=== PATIENT | male | born 1985 | race Caucasian/White ===

== ENCOUNTER → 2020-03-11 08:48 | Outpatient (CLI) | payer OTHER, SELFPAY ==
--- NOTE | 2020-03-11 | DI.MRI.S_ITS ---
PROCEDURE: MR LUMBAR SPINE WO CON INDICATIONS: Dorsalgia, unspecified TECHNIQUE: Noncontrast sagittal T1 spin echo and T2 fast echo, sagittal STIR, axial T1 and T2 fast spin echo through the lumbar spine. In cases with scoliosis, additional coronal T2 fast spin echo may be performed. COMPARISON: None. FINDINGS: Image quality: Excellent. Alignment and Curvature: There is normal bony alignment. Bone Marrow: Marrow is of normal overall signal. No acute vertebral body compression fractures. Spinal Cord: Conus medullaris terminates at the L1 level. Visualized cord demonstrates normal signal and size. Paraspinous Soft Tissues: No paravertebral masses. T12-L1: Normal appearance. L1-L2: Normal appearance. L2-L3: Normal appearance. L3-L4: Normal appearance except for mild facet degeneration. L4-L5: The degenerative disc disease at this level is moderately severe, with disc height reduction, disc desiccation, and also a posterior transverse broad-base disc bulge that shows a left-sided posterolateral disc protrusion/contiguous disc herniation extending from the disc annular margin into the posterolateral recess and medial margin of the left neural foramen at L4-5 significantly impinging on the course of the left L4 and likely also the left L5 nerve roots. Facet osteoarthritis is moderate in severity at this level, contributing to spinal stenosis which is moderate in severity on the right and near severe on the left. Asymmetric left greater than right neural foraminal stenosis is present also. L5-S1: Normal appearance except for mild facet degeneration. IMPRESSION: The degenerative changes are minimal along the lumbosacral spine except at L4-5 where a moderately severe degree of degenerative disc disease is associated with a left posterolateral contiguous disc protrusion/herniation extending into the posterolateral recess, causing significant impingement on the course of the left L4 and left L5 nerve roots. Asymmetric left greater than right spinal stenosis is present as a result, as is asymmetric left greater than right foraminal stenosis. No additional area of definite nerve root impingement is found. Dictated by: Darrian Chauhan M.D. on 03/13/2020 at 12:35 Approved by: Darrian Chauhan M.D. on 03/13/2020 at 12:40
== END ==
PROVIDERS: Referring Provider Student in an Organized Health Care Education/Training Program; Visit Provider Student in an Organized Health Care Education/Training Program
DX: M54.9 Dorsalgia, unspecified (principal); M51.36 Other intervertebral disc degeneration, lumbar region; M51.26 Other intervertebral disc displacement, lumbar region
CPT/HCPCS: 72148

== ENCOUNTER → 2020-04-01 11:39 | Outpatient (CLI) | payer OTHER, SELFPAY ==
[2020-04-01 14:41] LABS: COVID19 -Nasal RAPID Negative (Negative)
== END ==
PROVIDERS: PCP Family Medicine; Visit Provider Nurse Practitioner
DX: Z01.812 Encounter for preprocedural laboratory examination (principal); Z20.822 Contact with and (suspected) exposure to COVID-19
CPT/HCPCS: 87635

== ENCOUNTER 2020-04-03 10:34 | Day surgery (SDC) | payer OTHER, SELFPAY ==
[2020-04-03] VITALS (8 sets, daily range): BP systolic 115–137; BP diastolic 76–89; PULSE 73–90; RESP 10–16; TEMP 36.4–37.1; O2SAT 96–100
--- NOTE | 2020-04-03 | DI.RAD.S_ITS ---
PROCEDURE: XR LUMBAR SPINE 2-3V INDICATIONS: L4-5 DISCECTOMY TECHNIQUE: 1 views of the lumbar spine were acquired. COMPARISON: [facility], MR, MR LUMBAR SPINE WO CON, 03/11/2020, 9:21. FINDINGS: Intraoperative images with localizer overlying the posterior aspect of L4-5. IMPRESSION: Intraoperative localization as above. Dictated by: Shanice Thomas M.D. on 04/03/2020 at 16:13 Approved by: Shanice Thomas M.D. on 04/03/2020 at 16:14
[2020-04-03] MEDS: LACTATED RINGERS 1,000 ML 42 ML IV (11:29)
--- NOTE | 2020-04-03 12:02 | PM.PREOP ---
Pre-operative Note COVID-19 COVID-19 status: Negative Result date/Date tested (Pos, Neg/Pending): 04/01/20 Interval Note History & Physical reviewed/Exam performed by Physician: Yes Changes to H&P: No
[2020-04-03] MEDS: CEFAZOLIN 2 GM/100 ML FROZ.PIGGY IV (12:31)
--- NOTE | 2020-04-03 12:50 | SUR.OPER ---
Prone on spine table, head in foam head support, padded chest and pelvic supports, gel pad at knees, lower legs supported by pillows; nipples, genitalia and toes free of pressure, arms secured on foam padded arm boards at <90 degrees abduction. Tape over blanket at thigh secured to table.
[2020-04-03] MEDS: BUPIVACAINE 0.5% W/ EPI (PF) 30 ML VIAL INJ (12:58)
[2020-04-03] MEDS: methylPREDNISolone acet DEPO 40 MG/ML VIAL IM (13:03)
--- NOTE | 2020-04-03 13:54 | PM.OP.1 ---
Operative Date/Time/Diagnoses Date of procedure: 04/03/20 Time of procedure: 12:21 Pre-op diagnosis: 1. L4-5 disc herniation 2. L4-5 spinal stenosis with radiculopathy Post-op diagnosis: same Procedure & Clinicians Procedure: 1. L4-5 left microdiscectomy 2. Utilization of microsurgical technique and operating microscope Same procedure as scheduled: Yes Indications: Patient has been having chronic back pain and worsening lumbar radiculopathy. Patient failed multiple conservative management with worsening pain weakness and numbness in her lower extremity. Patient has been having difficulty performing activity of daily living. After discussing risks benefits of treatment options, patient elected proceed with surgery. Surgeon: Ramón Christine Plant Engineering Manager: Cassie Read'Brien Click Yes if Unassisted: No Anesthesia Type: General Operative Notes Closure Type: primary Specimen(s): none sent Estimated Blood Loss (mL): 5 Blood products transfused: none Procedure in detail: Patient was seen in the preoperative area. Risks and benefits of the surgery was discussed with the patient. Informed consent was obtained from the patient and placed in the chart. Surgical site was marked. Patient was taken to the operative room. General anesthesia was administered. Prophylactic antibiotic was given to the patient less than 30 min before the incision was made. Patient was placed into a prone position on the Kiran table. Patient's back was then prepped and draped in the sterile fashion. Time-out was performed at this time. Using AP and lateral C-arm imaging the interval between L4-5 was identified and marked on patient's back. A 1 inch incision 1 in from midline was made on the left side. The fascia was incised in line with skin incision. Globus MARS retractors was placed inside the incision and docked onto the L4 lamina. Using microsurgical technique and operating microscope, a L4 laminotomy was performed using a Kerrison rongeur. Liagamentum flavum was resected at the site of the laminotomy. The disc space at L4-5 was identified. Microdiscectomy was performed by incising the annulus with #11 blade. Microcurettes and pituitary was used to removed herniated disc fragments of disc from the epidural space. Patient was found have significant amount of extruded disc material in the epidural space. The disc material was carefully removed using pituitary. After the microdiskectomy was completed, the area medial lateral superior and inferior to the area of the microdiskectomy was inspected and explored using a micro curette. No other impinging structure was identified. The wound was then irrigated with sterile normal saline. 40 mg Depo-Medrol was placed into the epidural space. The deep fascia was closed with 1-0 Vicryl. The subcutaneous tissue was closed with 2-0 Vicryl. The skin was closed with 4-0 Monocryl. Patient tolerated the procedure well. There were no complications. Patient was transferred recovery room in stable condition. Complications: none Post-operative Condition: stable Disposition: PACU Plan for aftercare: Admit to inpatient hospital
[2020-04-03] MEDS: OXYCODONE/ACETAMINOPHEN 5/325 TABLET 1 TAB PO (14:28)
== END 2020-04-03 15:05 | disposition home or self-care (01) ==
PROVIDERS: PCP Family Medicine; Referring Provider Orthopaedic Surgery Orthopaedic Surgery of the Spine; Visit Provider Orthopaedic Surgery Orthopaedic Surgery of the Spine
PROC: (CPT 63030; principal; 2020-04-03 12:15)
DX: M51.16 Intervertebral disc disorders with radiculopathy, lumbar region (principal); M48.061 Spinal stenosis, lumbar region without neurogenic claudication
CPT/HCPCS: 63030; 72100; 76000; J0690; J1030; J1100; J2250; J2405; J2704; J3010

== ENCOUNTER 2020-08-18 18:51 | Emergency (ER) | payer OTHER, SELFPAY ==
[2020-08-18 18:57] VITALS: BP 150/99; PULSE 85; RESP 15; TEMP 36.9; O2SAT 98; BMI 26.6
--- NOTE | 2020-08-18 23:16 | ED_ITS ---
HPI - Extremity Problem General Chief complaint: Extremity Problem,Nontraumatic Stated complaint: tingling,numbness and warmth left side from hip Time Seen by Provider: 08/18/20 23:13 Source: patient Mode of arrival: Ambulatory Limitations: no limitations History of Present Illness HPI Narrative: 35-year-old male nonsmoker with history of lumbar pain and laminectomy at few months ago presents with the chief complaint of a few days of numbness and tingling the left lateral thigh down to the knee and extending up into the hip over the course of the day. He denies any weakness nor pain. He has had no fever or chills. He states that elements of his symptoms remind him of what he felt like coming out of surgery. He denies any calf or thigh pain, swelling, erythema or warmth. MD Complaint: other Onset (ago): hour(s) Location: left Relieving factors: nothing Exacerbating factors: nothing Related Data Home Medications Medication Instructions Recorded Confirmed hydroxyzine pamoate [Vistaril] 25 mg PO TID 03/31/20 04/03/20 Acetaminophen Extra Strength 1,000 mg PO TID PRN 04/03/20 04/03/20 gabapentin 300 mg PO TID 04/03/20 04/03/20 Previous Rx's Medication Instructions Recorded oxycodone 5 mg PO Q4H PRN #30 tab 04/03/20 gabapentin 300 mg PO BEDTIME #14 cap 08/19/20 methylprednisolone [Medrol (Juan)] See Rx Instructions .ROUTE 08/19/20 .COMPLEX #21 ea Allergies Allergy/AdvReac Type Severity Reaction Status Date / Time azithromycin Allergy Unknown Rash Verified 08/18/20 18:57 Review of Systems Constitutional Constitutional: Denies chills, Denies fatigue, Denies fever(s), Denies frequent falls, Denies lethargy and Denies weakness Eyes Eyes: Denies change in vision, Denies eye discharge, Denies irritation and Denies loss of vision ENT Ears, Nose, Mouth, and Throat: Denies change in voice, Denies dizziness, Denies neck pain, Denies sore throat and Denies throat swelling Cardiovascular Cardiovascular: Denies chest pain, Denies irregular heart rhythm, Denies lightheadedness, Denies palpitations, Denies dyspnea, Denies dyspnea on exertion and Denies orthopnea Respiratory Respiratory: Denies cough, Denies dyspnea, Denies dyspnea on exertion and Denies wheezing Gastrointestinal Gastrointestinal: Denies abdominal pain, Denies change in bowel habits, Denies diarrhea, Denies nausea and Denies vomiting Musculoskeletal Musculoskeletal: Denies neck pain and Reports numbness Integumentary/Breasts Skin/Breast: Denies pruritus, Denies erythema, Denies rash and Denies wounds Neurologic Neurologic: Denies behavioral changes, Denies confusion, Denies dizziness, Denies frequent falls, Denies loss of vision, Reports numbness, Reports paresthesias and Denies weakness Psychiatric Psychiatric: Denies anxiety, Denies behavioral changes, Denies confusion, Denies depression, Denies homicidal ideation and Denies suicidal ideation Endocrine Endocrine: Denies fatigue, Denies flushing and Denies palpitations Hematologic/Lymphatic Hematologic/Lymphatic: Denies easy bruising Allergic/Immunologic Allergic/Immunologic: Denies urticaria, Denies throat swelling and Denies whee zing Patient History Medical History Lumbar disc herniation with radiculopathy Social History household members: spouse Smoking Status: Current every day smoker alcohol intake: current Smoking Status: Current every day smoker tobacco type: vaping alcohol intake frequency: a few times a month Substance Use Type: does not use Exam Narrative Exam Narrative: GENERAL: [35] year old patient appears stated age. Well- developed patient, in mild distress. HEAD: Atraumatic. Normocephalic. EYES: Pupils equal round and reactive. Extraocular motions intact. No scleral icterus. No injection or drainage. ENT: Nose without bleeding, purulent drainage. Throat without erythema, tonsillar hypertrophy or exudate. Airway patent. NECK: Trachea midline. Non tender CARDIOVASCULAR: Regular rate and rhythm without murmurs, gallops, or rubs. RESPIRATORY: Clear to auscultation. Breath sounds equal bilaterally. No wheezes, rales, or rhonchi. GASTROINTESTINAL: Abdomen soft, non-tender, nondistended. EXTREMITIES: No edema or joint tenderness. BACK: Back nontender and free of any obvious external abnormalities. Patient exam notes full range of motion and no muscle spasm, no CVA tenderness, or vertebral point tenderness. There are no symptoms of cauda equina such as saddle anesthesia, and decreased reflexes, decreased strength. NEURO: AOx3. SKIN: No rash or erythema of visible areas Initial Vital Signs Initial Vital Signs: Vital Signs Temperature 98.5 F 08/18/20 18:57 Pulse Rate 85 08/18/20 18:57 Respiratory Rate 15 08/18/20 18:57 Blood Pressure 150/99 H 08/18/20 18:57 Pulse Oximetry 98 08/18/20 18:57 Course Orders Ordered: Discontinued Medications Prednisone (Prednisone 20 Mg Tablet) 40 mg PO NOW ONE Stop: 08/19/20 00:36 Last Admin: 08/19/20 00:38 Dose: 40 mg Documented by: CHELSI Vital Signs Vital signs: Vital Signs - 8 hr 08/18/20 23:22 08/18/20 23:24 08/18/20 23:25 Pulse Rate 80 84 84 Respiratory Rate 16 Blood Pressure 137/87 137/87 Pulse Oximetry 100 100 100 08/18/20 23:30 08/19/20 00:00 08/19/20 00:30 Pulse Rate 82 72 79 Respiratory Rate Blood Pressure 125/76 128/85 139/98 H Pulse Oximetry 97 98 99 MDM - Extremity (Nontraumatic) MDM Narrative Medical decision making narrative: Multiple etiologies of back pain considered including; Epidural abscess, cauda equina, mass occupying lesion, and other considered. Extensive discussion with the patient at the bedside and shared decision making regarding how to proceed. His exam is reassuring and there are no elements or red flag symptoms to suggest a neurosurgical emergency. We discussed the use of steroids and gabapentin and discharge with outpatient f ollow-up versus CT with IV contrast. We elect to hold off on the CT for now, understanding that it is not the ideal exam. Will observe response to medications and return for those indications as discussed Discharge Plan Departure Patient Disposition: Home Clinical Impression: Acute left lumbar radiculopathy Instructions: DI for Lumbar Radiculopathy Activity Restrictions/Additional Instructions: *You have been diagnosed with [lumbar radiculopathy] *What to do: *Please continue to take your regular medications as directed. [ x] New medication prescriptions sent to your pharmacy: [[facility] ] [ ] New medication written as a paper prescription [ ] No new medications given *Please follow up with your primary care provider in 2-3 days, call for an appointment. Let them know you were seen in the Emergency Department and that we ask that you be seen in follow up. We will electronically transmit a record of today's note if your PCP is in our system *If you do not have a primary care provider please contact the [facility] Resource line at [phone]. They will ask some questions about your medical history and help get you set up with a doctor in the community. *Return to Emergency Department if you should have any new, worsening or con cerning symptoms, such as [fever greater than 101 F, shaking chills, worsening pain, persistent vomiting or other bothersome symptoms] Prescriptions: New gabapentin 300 mg capsule 300 mg PO BEDTIME Qty: 14 RF: 0 methylprednisolone [Medrol (Juan)] 4 mg tablets,dose pack See Rx Instructions .ROUTE .COMPLEX Qty: 21 RF: 0 No Action hydroxyzine pamoate [Vistaril] 25 mg Capsule 25 mg PO TID RF: 0 Acetaminophen Extra Strength 500 mg tablet 1,000 mg PO TID PRN (Reason: Pain (Scale Score 4-6)) RF: 0 gabapentin 300 mg capsule 300 mg PO TID RF: 0 oxycodone 5 mg tablet 5 mg PO Q4H PRN (Reason: pain) Qty: 30 RF: 0 Referrals: Juan Miguel Kraft DO [Primary Care Provider] -
[2020-08-18 23:22] VITALS: PULSE 80; O2SAT 100
[2020-08-18 23:24] VITALS: BP 137/87; PULSE 84; O2SAT 100
[2020-08-18 23:25] VITALS: BP 137/87; PULSE 84; RESP 16; O2SAT 100
[2020-08-18 23:30] VITALS: BP 125/76; PULSE 82; O2SAT 97
[2020-08-19] VITALS: BP 128/85; PULSE 72; O2SAT 98
[2020-08-19 00:30] VITALS: BP 139/98; PULSE 79; O2SAT 99
[2020-08-19] MEDS: predniSONE 20 MG TABLET 40 MG PO (00:38)
== END 2020-08-19 00:41 | disposition home or self-care (01) ==
PROVIDERS: Emergency Provider Emergency Medicine; PCP Family Medicine
DX: M54.16 Radiculopathy, lumbar region (principal); R20.0 Anesthesia of skin
CPT/HCPCS: 93010; 99283

== ENCOUNTER 2020-08-19 21:14 | Inpatient (IN) | payer OTHER, SELFPAY ==
[2020-08-19 21:26] VITALS: BP 160/91; PULSE 83; RESP 18; TEMP 36.8; O2SAT 97; BMI 26.6
--- NOTE | 2020-08-19 21:36 | DI.CT.S_ITS ---
PROCEDURE: CT HEAD/BRAIN WO CON INDICATIONS: left sided numbness TECHNIQUE: Noncontrast 4.5 mm thick angled axial sections acquired from the foramen magnum to the vertex, with coronal and sagittal reformats. For radiation dose reduction, the following was used: automated exposure control, adjustment of mA and/or kV according to patient size. COMPARISON: None. FINDINGS: Image quality: Excellent. CSF spaces: Basal cisterns are patent. No extra-axial fluid collections. Ventricles are normal in size and shape. Brain: No midline shift. No intracranial masses or hemorrhage. Le-white matter interface is normal. Skull and face: Calvarium and visualized facial bones are intact, without suspicious lesions. Sinuses: Visualized sinuses and mastoids are clear. IMPRESSION: No evidence acute stroke, hemorrhage, or mass. Comment: Final report is concordant with preliminary interpretation provided by [facility]. Dictated by: Mason Solorio M.D. on 08/20/2020 at 7:09 Approved by: Mason Solorio M.D. on 08/20/2020 at 7:10
[2020-08-19] MEDS: SODIUM CHLORIDE 0.9% 1,000 ML 150 ML IV (21:41)
[2020-08-19 22:21] LABS: Add Manual Diff / Slide Review NO; Basophils Absolute Auto 100 /uL (0-100); Eosinophils Absolute Auto 0 /uL (0-450); Eosinophils Percent Auto 0.4 % (2-4); Hemoglobin 14.6 g/dL (13.5-17.5); Lymphocytes Absolute Auto 3400 /uL (1100-4500); Lymphocytes Percent Auto 26.2 % (25-40); Mean Corpuscular HGB Conc 34.7 % (30-36); Mean Corpuscular Hemoglobin 30.6 PG (26-34); Mean Corpuscular Volume 88.3 fL (80-100); Monocytes Absolute Auto 1200 /uL (0-900); Monocytes Percent Auto 9.3 % (3-14); Neutrophils Absolute Auto 8100 /uL (1500-7000); Neutrophils Percent Auto 63.1 % (50-75); Platelet Count 314 X10^3/uL (150-400); Red Blood Cell Count 4.75 X10^6/uL (4.5-5.9); Red Cell Distribution Width 12.5 % (11.6-14.8); White Blood Cell Count 12.8 X10^3/uL (4.5-11.0)
[2020-08-19 22:26] LABS: BUN Creatinine Ratio 11.5 (6-22); Blood Urea Nitrogen 12 mg/dL (9-20); Calcium 9.3 mg/dL (8.4-10.2); Carbon Dioxide 29 mmol/L (22-32); Chloride 102 mmol/L (98-107); Creatine Kinase 101 U/L (55-170); Estimated Glomerular Filt Rate > 60.0 mL/min (>60); Glucose 82 mg/dL (70-100); HEMOLYSIS < 15 (0-50); Potassium 3.4 mmol/L (3.4-5.1); Sodium 140 mmol/L (137-145)
[2020-08-19 22:34] VITALS: BP 132/84; PULSE 86; RESP 24; O2SAT 97
[2020-08-19 22:35] VITALS: BP 129/74; PULSE 85; RESP 18; O2SAT 97
[2020-08-19 22:38] LABS: Troponin I < 0.012 ng/mL (0.01-0.034)
--- NOTE | 2020-08-19 22:38 | DI.CT.S_ITS ---
PROCEDURE: CT ANGIO HEAD AND NECK INDICATIONS: head pain, left sided numbness, decreased temp sensation TECHNIQUE: After the administration of intravenous contrast, 1 mm thick sections acquired from the aortic arch through the [place] of [place]. Post-contrast 4.5 mm thick sections then re-acquired from the foramen magnum to the vertex. 3-dimensional pxxcktc-jrrsvzoqi-ykfnldsyko (MIP) and/or volume rendering reformats were acquired of the central intracranial vasculature and neck separately. COMPARISON: None. FINDINGS: Image quality: Excellent. BRAIN: CSF spaces: Ventricles are normal in size and shape. Basal cisterns are patent. No extra-axial fluid collections. Brain: No midline shift. No intracranial bleeds or masses. Le-white matter interface appears intact. Skull and face: Calvarium and facial bones appear intact, without suspicious lesions. Orbits appear normal. Sinuses: Sinuses and mastoids are clear. HEAD CT ANGIOGRAPHY: Anterior circulation: Intracranial internal carotid arteries are normal in size and flow. The flow within the paired anterior cerebral arteries is normal and symmetric. The flow within the middle cerebral arteries is normal and symmetric. Hypoplastic or atretic A1 segment of right anterior cerebral artery, normal variant anatomy. The anterior communicating artery is seen. No aneurysms are seen. No occlusions, stenosis, or focal filling defects. Posterior circulation: The right vertebral artery is diffusely diminutive. The left vertebral artery is dominant, and they join to form a normal basilar artery. Flow within the posterior cerebral arteries is normal and symmetric. No aneurysms are seen. No occlusions, stenosis, focal filling defects. NECK CT ANGIOGRAPHY: Carotid system: The great vessels demonstrate a conventional anatomy as they arise from the aortic arch. The origins of the common carotid arteries appear patent. The common carotid arteries demonstrate normal caliber and courses. The bifurcation regions are both widely patent. The internal carotid arteries demonstrate normal calibers and courses. Posterior circulation: Diffusely diminutive right vertebral artery. Dominant left vertebral artery and normal basilar artery. They join to form a normal appearing basilar artery. Soft tissues: Visualized neck soft tissues demonstrate no suspicious abnormalities. Bones: No suspicious bony lesions. Visualized cervical spine appears normally aligned. IMPRESSION: 1. No evidence of acute stroke, hemorrhage, or mass. 2. Normal variant anatomy in which there is a diffusely hypoplastic right vertebral artery and a hypoplastic or atretic right A1 segment anterior cerebral artery. 3. No aneurysms, filling defects, stenosis, or occlusions 4. Unremarkable CTA neck. Widely patent carotids. Comment: Final report is concordant with preliminary interpretation provided by [facility]. Any quantitative measurements of stenosis were performed using NASCET criteria. Dictated by: Mason Solorio M.D. on 08/20/2020 at 7:12 Approved by: Mason Solorio M.D. on 08/20/2020 at 7:18
[2020-08-19 22:41] LABS: CKMB % Relative Index 0.5 % (1.5-5.0); Creatine Kinase MB 0.46 ng/mL (<2.37)
--- NOTE | 2020-08-19 23:13 | ED.NEUROSD ---
HPI - Neuro Symptoms/Deficit <Clif Womack DO - Last Filed: 08/26/20 03:20> General Chief Complaint: Neuro Symptoms/Deficit Stated Complaint: Tingling/Numbness up LT side of body Time Seen by Provider: 08/19/20 21:36 Source: patient Mode of arrival: Ambulatory Limitations: no limitations History of Present Illness HPI Narrative: 35M non smoker with history Of lumbar radiculopathy Presents with an evolution of the symptoms that brought him in yesterday. I saw him yesterday with a chief complaint of some numbness and tingling that radiated from his left hip down his left leg in the absence of pain or weakness. He denies any trouble controlling bowel or bladder. He denies any saddle anesthesia, lower extremity weakness or footdrop. He denies any trauma or known injury. He denies the use of IV drugs in, blood thinners. He was given prescriptions for steroids and gabapentin and encouraged follow-up. Over the course of the day today he started developing numbness and tingling of his left arm and much of the left side of his torso as well. He denies any weakness or pain. He denies any numbness or tingling of his face. He has no neck pain or known history of neck injury. He states that when he took a hot shower the left side of his body felt room as is the water were ice cold and the right side felt the actual warmth of the water. Onset (ago): day(s) Location: left arm and left leg History of same: No Severity: moderate Quality: tingling Relieving factors: none Exacerbating factors: none Context: gradual onset On Anticoagulants: No Associated symptoms: denies other symptoms Treatments Prior to Arrival: none Related Data Home Medications Medication Instructions Recorded Confirmed Acetaminophen Extra Strength 1,000 mg PO TID PRN 04/03/20 08/20/20 dextroamphetamine-amphetamine ER 20 mg PO DAILY 08/20/20 08/20/20 20 mg 24hr capsule,extend release Previous Rx's Medication Instructions Recorded gabapentin 300 mg capsule 300 mg PO BEDTIME #14 cap 08/19/20 aspirin 81 mg tablet,delayed 81 mg PO DAILY 30 Days #30 tab 08/21/20 release atorvastatin 80 mg tablet 80 mg PO BEDTIME 30 Days #30 tab 08/21/20 Allergies Allergy/AdvReac Type Severity Reaction Status Date / Time azithromycin Allergy Unknown Rash Verified 08/19/20 21:26 Review of Systems <Clif Womack DO - Last Filed: 08/26/20 03:20> Constitutional Constitutional: Denies chills, Denies fatigue, Denies fever(s), Denies frequent falls, Denies lethargy and Denies weakness Eyes Eyes: Denies change in vision, Denies eye discharge, Denies irritation and Denies loss of vision ENT Ears, Nose, Mouth, and Throat: Denies change in voice, Denies dizziness, Denies neck pain, Denies sore throat and Denies throat swelling Cardiovascular Cardiovascular: Denies chest pain, Denies irregular heart rhythm, Denies lightheadedness, Denies palpitations, Denies dyspnea, Denies dyspnea on exertion and Denies orthopnea Respiratory Respiratory: Denies cough, Denies dyspnea, Denies dyspnea on exertion and Denies wheezing Gastrointestinal Gastrointestinal: Denies abdominal pain, Denies change in bowel habits, Denies diarrhea, Denies nausea and Denies vomiting Musculoskeletal Musculoskeletal: Denies neck pain and Reports numbness Integumentary/Breasts Skin/Breast: Denies pruritus, Denies erythema, Denies rash and Denies wounds Neurologic Neurologic: Denies behavioral changes, Denies confusion, Denies dizziness, Denies frequent falls, Denies loss of vision, Reports numbness and Denies weakness Psychiatric Psychiatric: Denies anxiety, Denies behavioral changes, Denies confusion, Denies depression, Denies homicidal ideation and Denies suicidal ideation Endocrine Endocrine: Denies fatigue, Denies flushing and Denies palpitations Hematologic/Lymphatic Hematologic/Lymphatic: Denies easy bruising On Anticoagulants: No Allergic/Immunologic Allergic/Immunologic: Denies urticaria, Denies throat swelling and Denies wheezing Patient History <Clif Womack DO - Last Filed: 08/26/20 03:20> Medical History Lumbar disc herniation with radiculopathy Social History household members: spouse Smoking Status: Current every day smoker alcohol intake: current Smoking Status: Current every day smoker tobacco type: e-cigarettes alcohol intake frequency: a few times a month Substance Use Type: does not use Exam <Clif [place], DO - Last Filed: 08/26/20 03:20> Narrative Exam Narrative: GENERAL: [35] year old patient appears stated age. Well-developed patient, in mild distress. HEAD: Atraumatic. Normocephalic. EYES: Pupils equal round and reactive. Extraocular motions intact. No scleral icterus. No injection or drainage. ENT: Nose without bleeding, purulent drainage. Throat without erythema, tonsillar hypertrophy or exudate. Airway patent. NECK: Trachea midline. Non tender CARDIOVASCULAR: Regular rate and rhythm without murmurs, gallops, or rubs. RESPIRATORY: Clear to auscultation. Breath sounds equal bilaterally. No wheezes, rales, or rhonchi. GASTROINTESTINAL: Abdomen soft, non-tender, nondistended. EXTREMITIES: No edema or joint tenderness. BACK: Nontender without deformity or crepitance. No flank tenderness. NEURO: AOx3. Sensory deficit of left leg, arm and torso. Still has sensation, just less on the left. This is true for soft touch, pin prick, and temperature with ice cube. SKIN: No rash or erythema of visible areas Initial Vital Signs Initial Vital Signs: Vital Signs Temperature 98.2 F 08/19/20 21:26 Pulse Rate 83 08/19/20 21:26 Respiratory Rate 18 08/19/20 21:26 Blood Pressure 160/91 H 08/19/20 21:26 Pulse Oximetry 97 08/19/20 21:26 <Nadine Marin, DO - Last Filed: 08/20/20 19:22> Initial Vital Signs Initial Vital Signs: Vital Signs Temperature 98.2 F 08/19/20 21:26 Pulse Rate 83 08/19/20 21:26 Respiratory Rate 18 08/19/20 21:26 Blood Pressure 160/91 H 08/19/20 21:26 Pulse Oximetry 97 08/19/20 21:26 Scores <Clif Womack, DO - Last Filed: 08/26/20 03:20> NIH Stroke Scale Level of Conciousness: Alert, keenly responsive Ask month/age: Answers both questions correctly. Open/close eyes, close hand: Performs both tasks correctly Best gaze horizontal: Normal Visual mccoy: No visual loss Facial palsy: Normal symetrical movement Left arm drift: No drift for full 10 sec Right arm drift: No drift for full 10 sec Left leg drift: No drift for full 5 sec Right leg drift: No drift for full 5 sec Limb ataxia: Absent Sensory on face/arms/legs: Mild to moderate sensory loss, can tell touch Best language: No aphasia, normal Dysarthria: Normal Extinction or inattention: No abnormality Total NIH Stroke scale score: 1 Course <Clif Vu DO - Last Filed: 08/26/20 03:20> Orders Ordered: Discontinued Medications Acetaminophen (Acetaminophen 325 Mg Tablet) 650 mg PO Q6HR PRN PRN Reason: Fever/Mild Pain (1-3) Aspirin (Aspirin 81 Mg Chew Tab) 324 mg PO NOW ONE Stop: 08/20/20 10:09 Last Admin: 08/20/20 10:28 Dose: 324 mg Documented by: ISSAC Aspirin (Aspirin Ec 81 Mg Tablet) 81 mg PO DAILY [facility] Last Admin: 08/21/20 09:59 Dose: 81 mg Documented by: BRANDY Atorvastatin Calcium (Atorvastatin 20 Mg Tablet) 40 mg PO NOW ONE Stop: 08/20/20 10:20 Last Admin: 08/20/20 10:48 Dose: 40 mg Documented by: ISSAC Atorvastatin Calcium (Atorvastatin 20 Mg Tablet) 80 mg PO BEDTIME [facility] Last Admin: 08/20/20 21:11 Dose: 40 mg Documented by: BUD Clopidogrel Bisulfate (Clopidogrel 75 Mg Tablet) 75 mg PO DAILY [facility] Enoxaparin Sodium (Enoxaparin 40 Mg/0.4 Ml Syringe) 40 mg SUBCUT DAILY [facility] Last Admin: 08/21/20 09:59 Dose: 40 mg Documented by: BRANDY Sodium Chloride (Normal Saline 0.9%) 1,000 mls @ 150 mls/hr IV CONT [facility] Last Infusion: 08/20/20 00:26 Dose: 0 mls/hr Documented by: Admin: 08/19/20 21:41 Dose: 150 mls/hr Documented by: RADHIKA Naloxone HCl (Naloxone 0.4 Mg/Ml Vial) 0.2 mg IV Q2MIN PRN PRN Reason: Opiate Reversal Sodium Chloride (Sodium Chloride 0.9% Flush) 10 ml IV PRN PRN PRN Reason: Flush Sodium Chloride (Sodium Chloride 0.9% Flush) 10 ml IV BID [facility] Last Admin: 08/21/20 10:00 Dose: 10 ml Documented by: BRANDY Consultations Consultation #1: discussed with Dr. Varma (telestroke). He agrees that patient is not candidate for TPA or thrombectomy, but should get MRI of head and neck w/wo contrast to evaluate. No steroids or other therapies until MRI completed Vital Signs Vital signs: Vital Signs - 8 hr 08/20/20 02:59 08/20/20 03:00 08/20/20 03:30 Temperature Pulse Rate 83 82 81 Respiratory Rate 14 14 15 Blood Pressure 134/89 126/82 Pulse Oximetry 99 99 98 08/20/20 04:00 08/20/20 04:30 08/20/20 05:00 Temperature Pulse Rate 79 80 76 Respiratory Rate 14 17 12 Blood Pressure 123/85 128/81 129/86 Pulse Oximetry 98 98 98 08/20/20 05:30 08/20/20 06:00 08/20/20 06:30 Temperature Pulse Rate 76 76 66 Respiratory Rate 12 12 15 Blood Pressure 125/84 125/83 114/67 Pulse Oximetry 98 98 99 08/20/20 07:00 08/20/20 07:30 08/20/20 07:31 Temperature 97.9 F Pulse Rate 78 77 77 Respiratory Rate 15 21 18 Blood Pressure 109/68 128/77 Pulse Oximetry 99 98 99 08/20/20 08:00 Temperature Pulse Rate 82 Respiratory Rate 18 Blood Pressure 130/84 Pulse Oximetry 100 <Nadine Marin, - Last Filed: 08/20/20 19:22> Orders Ordered: Discontinued Medications Acetaminophen (Acetaminophen 325 Mg Tablet) 650 mg PO Q6HR PRN PRN Reason: Fever/Mild Pain (1-3) Aspirin (Aspirin 81 Mg Chew Tab) 324 mg PO NOW ONE Stop: 08/20/20 10:09 Last Admin: 08/20/20 10:28 Dose: 324 mg Documented by: ISSAC Aspirin (Aspirin Ec 81 Mg Tablet) 81 mg PO DAILY [facility] Last Admin: 08/21/20 09:59 Dose: 81 mg Documented by: BRANDY Atorvastatin Calcium (Atorvastatin 20 Mg Tablet) 40 mg PO NOW ONE Stop: 08/20/20 10:20 Last Admin: 08/20/20 10:48 Dose: 40 mg Documented by: ISSAC Atorvastatin Calcium (Atorvastatin 20 Mg Tablet) 80 mg PO BEDTIME [facility] Last Admin: 08/20/20 21:11 Dose: 40 mg Documented by: BUD Clopidogrel Bisulfate (Clopidogrel 75 Mg Tablet) 75 mg PO DAILY [facility] Enoxaparin Sodium (Enoxaparin 40 Mg/0.4 Ml Syringe) 40 mg SUBCUT DAILY [facility] Last Admin: 08/21/20 09:59 Dose: 40 mg Documented by: BRANDY Sodium Chloride (Normal Saline 0.9%) 1,000 mls @ 150 mls/hr IV CONT [facility] Last Infusion: 08/20/20 00:26 Dose: 0 mls/hr Documented by: Admin: 08/19/20 21:41 Dose: 150 mls/hr Documented by: RADHIKA Naloxone HCl (Naloxone 0.4 Mg/Ml Vial) 0.2 mg IV Q2MIN PRN PRN Reason: Opiate Reversal Sodium Chloride (Sodium Chloride 0.9% Flush) 10 ml IV PRN PRN PRN Reason: Flush Sodium Chloride (Sodium Chloride 0.9% Flush) 10 ml IV BID [facility] Last Admin: 08/21/20 10:00 Dose: 10 ml Documented by: BRANDY Consultations Consultation #1: Dr. Varma for telestroke was recontacted. based on patient's age and location of his stroke he recommends transfer to a larger stroke center. He recommends hypercoagulable workup for patient, and SALLY at some point and with cerebral location there is risk for increasing edema so he does recommend that patient not be kept here but a larger facility. He also recommends aspirin, Lipitor and no additional medication interventions at this moment Time: 10:22 Consultation #2: [facility], Dr. Hutchinson. patient has some a case was reviewed. At this time he feels he does not need a neuro ICU bed. he would recommend typical stroke workup and that they could facilitate outpatient a valve such as SALLY. But would continue with 2D echo, hypercoagulable workup and telemetry monitoring for other possible sources of his stroke. There is no bed availability at this time and would be 1-2 days and they asked that we advance patient's care and workup here at [facility] and they can follow up with him as an outpatient. Consultation #3: Dr. Chi, Hospitalist here at [facility] accepts for admission for stroke. I did share neurology's recommendations. That aspirin, Lipitor for the patient. Discussed that plan was to keep the patient here because we do not have bed availability at any hospitals including [facility]. Vital Signs Vital signs: Vital Signs - 8 hr 08/20/20 02:59 08/20/20 03:00 08/20/20 03:30 Temperature Pulse Rate 83 82 81 Respiratory Rate 14 14 15 Blood Pressure 134/89 126/82 Pulse Oximetry 99 99 98 08/20/20 04:00 08/20/20 04:30 08/20/20 05:00 Temperature Pulse Rate 79 80 76 Respiratory Rate 14 17 12 Blood Pressure 123/85 128/81 129/86 Pulse Oximetry 98 98 98 08/20/20 05:30 08/20/20 06:00 08/20/20 06:30 Temperature Pulse Rate 76 76 66 Respiratory Rate 12 12 15 Blood Pressure 125/84 125/83 114/67 Pulse Oximetry 98 98 99 08/20/20 07:00 08/20/20 07:30 08/20/20 07:31 Temperature 97.9 F Pulse Rate 78 77 77 Respiratory Rate 15 21 18 Blood Pressure 109/68 128/77 Pulse Oximetry 99 98 99 08/20/20 08:00 Temperature Pulse Rate 82 Respiratory Rate 18 Blood Pressure 130/84 Pulse Oximetry 100 MDM - Neuro Symptoms/Deficit <Clif Womack DO - Last Filed: 08/26/20 03:20> Lab Data Result diagrams: 08/21/20 04:56 08/21/20 04:56 Labs: Lab Results 08/19/20 08/19/20 08/20/20 Range/Units 21:55 21:55 00:33 WBC 12.8 H (4.5-11.0) X10^3/uL RBC 4.75 (4.5-5.9) X10^6/uL Hgb 14.6 (13.5-17.5) g/dL Hct 42.0 (41-53) % MCV 88.3 (80-100) fL MCH 30.6 (26-34) PG MCHC 34.7 (30-36) % RDW 12.5 (11.6-14.8) % Plt Count 314 (150-400) X10^3/uL Neut % (Auto) 63.1 (50-75) % Lymph % (Auto) 26.2 (25-40) % Swift % (Auto) 9.3 (3-14) % Eos % (Auto) 0.4 L (2-4) % Baso % (Auto) 1.0 (0-2) % Neut # (Auto) 8100 H (1697-5612) /uL Lymph # (Auto) 3400 (9626-9011) /uL Swift # (Auto) 1200 H (0-900) /uL Eos # (Auto) 0 (0-450) /uL Baso # (Auto) 100 (0-100) /uL Sodium 140 (137-145) mmol/L Potassium 3.4 (3.4-5.1) mmol/L Chloride 102 (98-107) mmol/L Carbon Dioxide 29 (22-32) mmol/L BUN 12 (9-20) mg/dL Creatinine 1.04 (0.66-1.25) mg/dL Estimated GFR > 60.0 (>60) mL/min BUN/Creatinine Ratio 11.5 (6-22) Glucose 82 (70-100) mg/dL Calcium 9.3 (8.4-10.2) mg/dL Total Creatine Kinase 101 (55-170) U/L CK-MB (CK-2) 0.46 (<2.37) ng/mL CK-MB (CK-2) Rel Index 0.5 L (1.5-5.0) % Troponin I < 0.012 (0.01-0.034) ng/mL U Opiates 300ng/mL cut Negative (Negative) Ur Oxycodone Screen Negative (Negative) Urine Methadone Screen Negative (Negative) Ur Barbiturates Screen Negative (Negative) U Tricyclic Antidepress Negative (Negative) Ur Phencyclidine Scrn Negative (Negative) Ur Amphetamines Screen Positive H (Negative) U Methamphetamines Scrn Negative (Negative) Ur MDMA Scrn (Ecstasy) Negative (Negative) U Benzodiazepines Scrn Negative (Negative) Urine Cocaine Screen Negative (Negative) U Marijuana (THC) Screen Negative (Negative) SARS-CoV-2 (PCR) (Negative) 08/20/20 Range/Units 10:32 WBC (4.5-11.0) X10^3/uL RBC (4.5-5.9) X10^6/uL Hgb (13.5-17.5) g/dL Hct (41-53) % MCV (80-100) fL MCH (26-34) PG MCHC (30-36) % RDW (11.6-14.8) % Plt Count (150-400) X10^3/uL Neut % (Auto) (50-75) % Lymph % (Auto) (25-40) % Swift % (Auto) (3-14) % Eos % (Auto) (2-4) % Baso % (Auto) (0-2) % Neut # (Auto) (7728-9862) /uL Lymph # (Auto) (0193-0971) /uL Swift # (Auto) (0-900) /uL Eos # (Auto) (0-450) /uL Baso # (Auto) (0-100) /uL Sodium (137-145) mmol/L Potassium (3.4-5.1) mmol/L Chloride (98-107) mmol/L Carbon Dioxide (22-32) mmol/L BUN (9-20) mg/dL Creatinine (0.66-1.25) mg/dL Estimated GFR (>60) mL/min BUN/Creatinine Ratio (6-22) Glucose (70-100) mg/dL Calcium (8.4-10.2) mg/dL Total Creatine Kinase (55-170) U/L CK-MB (CK-2) (<2.37) ng/mL CK-MB (CK-2) Rel Index (1.5-5.0) % Troponin I (0.01-0.034) ng/mL U Opiates 300ng/mL cut (Negative) Ur Oxycodone Screen (Negative) Urine Methadone Screen (Negative) Ur Barbiturates Screen (Negative) U Tricyclic Antidepress (Negative) Ur Phencyclidine Scrn (Negative) Ur Amphetamines Screen (Negative) U Methamphetamines Scrn (Negative) Ur MDMA Scrn (Ecstasy) (Negative) U Benzodiazepines Scrn (Negative) Urine Cocaine Screen (Negative) U Marijuana (THC) Screen (Negative) SARS-CoV-2 (PCR) Negative (Negative) Urine Dip Bedside Urine Glucose Negative Bedside Urine Bilirubin - Negative Bedside Urine Ketone - Negative Urine Specific [place] 1.010 Bedside Urine Occult Blood - Negative Bedside Urine pH 6.5 Bedside Urine Protein - Negative Bedside Urine Urobilinogen - Negative Bedside Urine Nitrite - Negative Bedside Urine Leukocytes - Negative Esterase <Nadine C Mank, DO - Last Filed: 08/20/20 19:22> Lab Data Attestation: I reviewed the patient's lab results. Labs: Lab Results 08/19/20 08/19/20 08/20/20 Range/Units 21:55 21:55 00:33 WBC 12.8 H (4.5-11.0) X10^3/uL RBC 4.75 (4.5-5.9) X10^6/uL Hgb 14.6 (13.5-17.5) g/dL Hct 42.0 (41-53) % MCV 88.3 (80-100) fL MCH 30.6 (26-34) PG MCHC 34.7 (30-36) % RDW 12.5 (11.6-14.8) % Plt Count 314 (150-400) X10^3/uL Neut % (Auto) 63.1 (50-75) % Lymph % (Auto) 26.2 (25-40) % Swift % (Auto) 9.3 (3-14) % Eos % (Auto) 0.4 L (2-4) % Baso % (Auto) 1.0 (0-2) % Neut # (Auto) 8100 H (5721-7235) /uL Lymph # (Auto) 3400 (8164-1919) /uL Swift # (Auto) 1200 H (0-900) /uL Eos # (Auto) 0 (0-450) /uL Baso # (Auto) 100 (0-100) /uL Sodium 140 (137-145) mmol/L Potassium 3.4 (3.4-5.1) mmol/L Chloride 102 (98-107) mmol/L Carbon Dioxide 29 (22-32) mmol/L BUN 12 (9-20) mg/dL Creatinine 1.04 (0.66-1.25) mg/dL Estimated GFR > 60.0 (>60) mL/min BUN/Creatinine Ratio 11.5 (6-22) Glucose 82 (70-100) mg/dL Calcium 9.3 (8.4-10.2) mg/dL Total Creatine Kinase 101 (55-170) U/L CK-MB (CK-2) 0.46 (<2.37) ng/mL CK-MB (CK-2) Rel Index 0.5 L (1.5-5.0) % Troponin I < 0.012 (0.01-0.034) ng/mL U Opiates 300ng/mL cut Negative (Negative) Ur Oxycodone Screen Negative (Negative) Urine Methadone Screen Negative (Negative) Ur Barbiturates Screen Negative (Negative) U Tricyclic Antidepress Negative (Negative) Ur Phencyclidine Scrn Negative (Negative) Ur Amphetamines Screen Positive H (Negative) U Methamphetamines Scrn Negative (Negative) Ur MDMA Scrn (Ecstasy) Negative (Negative) U Benzodiazepines Scrn Negative (Negative) Urine Cocaine Screen Negative (Negative) U Marijuana (THC) Screen Negative (Negative) SARS-CoV-2 (PCR) (Negative) 08/20/20 Range/Units 10:32 WBC (4.5-11.0) X10^3/uL RBC (4.5-5.9) X10^6/uL Hgb (13.5-17.5) g/dL Hct (41-53) % MCV (80-100) fL MCH (26-34) PG MCHC (30-36) % RDW (11.6-14.8) % Plt Count (150-400) X10^3/uL Neut % (Auto) (50-75) % Lymph % (Auto) (25-40) % Swift % (Auto) (3-14) % Eos % (Auto) (2-4) % Baso % (Auto) (0-2) % Neut # (Auto) (8437-5556) /uL Lymph # (Auto) (8844-2197) /uL Swift # (Auto) (0-900) /uL Eos # (Auto) (0-450) /uL Baso # (Auto) (0-100) /uL Sodium (137-145) mmol/L Potassium (3.4-5.1) mmol/L Chloride (98-107) mmol/L Carbon Dioxide (22-32) mmol/L BUN (9-20) mg/dL Creatinine (0.66-1.25) mg/dL Estimated GFR (>60) mL/min BUN/Creatinine Ratio (6-22) Glucose (70-100) mg/dL Calcium (8.4-10.2) mg/dL Total Creatine Kinase (55-170) U/L CK-MB (CK-2) (<2.37) ng/mL CK-MB (CK-2) Rel Index (1.5-5.0) % Troponin I (0.01-0.034) ng/mL U Opiates 300ng/mL cut (Negative) Ur Oxycodone Screen (Negative) Urine Methadone Screen (Negative) Ur Barbiturates Screen (Negative) U Tricyclic Antidepress (Negative) Ur Phencyclidine Scrn (Negative) Ur Amphetamines Screen (Negative) U Methamphetamines Scrn (Negative) Ur MDMA Scrn (Ecstasy) (Negative) U Benzodiazepines Scrn (Negative) Urine Cocaine Screen (Negative) U Marijuana (THC) Screen (Negative) SARS-CoV-2 (PCR) Negative (Negative) Urine Dip Bedside Urine Glucose Negative Bedside Urine Bilirubin - Negative Bedside Urine Ketone - Negative Urine Specific Chester 1.010 Bedside Urine Occult Blood - Negative Bedside Urine pH 6.5 Bedside Urine Protein - Negative Bedside Urine Urobilinogen - Negative Bedside Urine Nitrite - Negative Bedside Urine Leukocytes - Negative Esterase Imaging Data Brain MRI: Radiologist's Impression: [address] [id number] Resonance ReportSigned Patient: Jesse Baker WMR#: [id number]: 1985Acct:[id number]/Sex: 35 / MDate of Service: 08/20/20Loc: EDAccession Number: [id number] Procedure: MR head/brain wo/w con Ordering Provider: Clif Womack D.O. PROCEDURE: MR HEAD/BRAIN WO/W CON INDICATIONS: left arm numbness, tingling, temperature change TECHNIQUE: Noncontrast axial T1 spin echo, axial T2 fast spin echo, sagittal and axial FLAIR, coronal T2 fast spin echo, axial gradient echo, axial diffusion and ADC through the brain. After the administration of contrast, axial and coronal 3D VIBE or T1 spin echo with fat saturation through the brain. COMPARISON: [facility], CT, CT ANGIO HEAD AND NECK, 08/19/2020, 22:48. FINDINGS: Image quality: Excellent. CSF Spaces: Basal cisterns are patent. No extra-axial fluid collections. Ventricles are normal in size and shape. Brain: No midline shift. No intracranial bleeds or masses. No abnormal intracranial enhancement. The brainstem appears normal. There is a tiny area of acute infarct in the inferior medial right cerebellum. There is associated restricted water diffusion. Reference image 57 of series 11. There is a small amount associated cytotoxic edema noted on the FLAIR sequence. Reference image 5 of series 7. No chronic ischemic insults. Normal intravascular flow voids are present. Again noted is a diffusely diminutive right vertebral artery and a dominant left vertebral artery. Skull and face: Calvarial marrow is normal in signal. Orbits appear normal. Sinuses: Sinuses and mastoids appear clear. IMPRESSION: 1. Tiny acute inferior medial right cerebellar infarct. This infarct has occurred long enough ago for there to be associated cytotoxic edema noted on the FLAIR imaging. 2. 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 3. Brain parenchyma is otherwise normal in appearance. Dictated by: Mason Solorio M.D. on 08/20/2020 at 8:40 Approved by: Mason Solorio M.D. on 08/20/2020 at 8:47 MRI Cspine: Radiologist's Impression: [address] [id number] Resonance ReportSigned Patient: Jesse Baker WMR#: [id number]: 1985Acct:[id number]/Sex: 35 / MDate of Service: 08/20/20Loc: EDAccession Number: [id number] Procedure: MR cervical spine wo/w con Ordering Provider: Clif Womack D.O. PROCEDURE: MR CERVICAL SPINE WO/W CON INDICATIONS: left arm and leg numbness, tingling TECHNIQUE: Noncontrast sagittal T1 spin echo and T2 fast spin echo, sagittal STIR, foraminal oblique sagittal T2 fast spin echo, axial gradient echo or T2 fast spin echo through the cervical spine. After the administration of contrast, axial and sagittal T1 spin echo with fat saturation through the cervical spine. COMPARISON: [facility], HEAD/BRAIN WO/W CON, 08/20/2020, 7:57. FINDINGS: Image quality: Excellent. Alignment and curvature: There is normal bony alignment. Marrow: Marrow is normal in overall signal, without suspicious enhancement. Spinal cord: Visualized spinal cord has normal size and signal. No cerebellar tonsillar herniation. No abnormal intramedullary enhancement. Inferior brain: Subtle cytotoxic edema from a tiny acute inferomedial right cerebellar infarct. Paraspinous soft tissues: No paravertebral masses or suspicious enhancement. C2-3: No canal stenosis or foraminal stenosis. C3-4: No canal stenosis or foraminal stenosis. C4-5: No canal stenosis or foraminal stenosis. C5-6: No canal stenosis or foraminal stenosis. C6-7: No canal stenosis or foraminal stenosis. C7-T1: No canal stenosis or foraminal stenosis. IMPRESSION: 1. Note made of subtle cytotoxic edema on the top to images in the inferomedial right cerebellum. This is only seen when viewed in conjunction with the brain MRI from the same setting. 2. Otherwise unremarkable cervical spine MRI with without contrast. No canal stenosis or foraminal stenosis. Dictated by: Mason Solorio M.D. on 08/20/2020 at 8:48 Approved by: Mason Solorio M.D. on 08/20/2020 at 8:52 MDM Narrative Medical decision making narrative: this is a 35-year-old male who was seen by myself and independent evaluation after sign-out from Dr. Womack. patient states that about 6 days ago he developed a quite severe occipital headache that lasted for several days. Several days after that he had some numbness tingling in his left lower extremity. Several days after that yesterday he noted that the left upper extremity and side of his body did have differences in sensation any even appreciate some color differential on his body. Patient states he got in the shower and appreciated the right side but pot the left side felt cold. Patient was seen by my partner condom had head CT and CTA which did show acute changes, discussion was done with tele stroke and Dr. Varma and felt it would be appropriate hold patient for GinVA which was not available last night. Patient does appear to had a cerebellar stroke aspirin was initiated, Plavix and recommendation was given for workup and transfer to larger stroke facility as we do not have all of these components available such as SALLY available to us. There is no bed availability in the general area at this time. Multiple hospitals have been contacted. I did also speak with Neurology at [facility] in the recommend keeping patient here for initial workup, patient can have actual SALLY as an outpatient but the rest of his workup can be facilitated initially here. They were happy to consult as needed with our hospitalist. Our hospitalist kindly accepted patient for admission. Discharge Plan Departure Patient Disposition: Admitted As Inpatient Clinical Impression: Acute CVA (cerebrovascular accident) Admit Date/Time: 08/20/20 12:34 Admit Provider: Drew Chi
[2020-08-20] VITALS (20 sets, daily range): BP systolic 109–140; BP diastolic 67–92; PULSE 66–85; RESP 12–21; TEMP 36.4–36.9; O2SAT 98–100; BMI 26.6
--- NOTE | 2020-08-20 00:32 | DI.MRI.S_ITS ---
PROCEDURE: MR CERVICAL SPINE WO/W CON INDICATIONS: left arm and leg numbness, tingling TECHNIQUE: Noncontrast sagittal T1 spin echo and T2 fast spin echo, sagittal STIR, foraminal oblique sagittal T2 fast spin echo, axial gradient echo or T2 fast spin echo through the cervical spine. After the administration of contrast, axial and sagittal T1 spin echo with fat saturation through the cervical spine. COMPARISON: [facility], MR, MR HEAD/BRAIN WO/W CON, 08/20/2020, 7:57. FINDINGS: Image quality: Excellent. Alignment and curvature: There is normal bony alignment. Marrow: Marrow is normal in overall signal, without suspicious enhancement. Spinal cord: Visualized spinal cord has normal size and signal. No cerebellar tonsillar herniation. No abnormal intramedullary enhancement. Inferior brain: Subtle cytotoxic edema from a tiny acute inferomedial right cerebellar infarct. Paraspinous soft tissues: No paravertebral masses or suspicious enhancement. C2-3: No canal stenosis or foraminal stenosis. C3-4: No canal stenosis or foraminal stenosis. C4-5: No canal stenosis or foraminal stenosis. C5-6: No canal stenosis or foraminal stenosis. C6-7: No canal stenosis or foraminal stenosis. C7-T1: No canal stenosis or foraminal stenosis. IMPRESSION: 1. Note made of subtle cytotoxic edema on the top to images in the inferomedial right cerebellum. This is only seen when viewed in conjunction with the brain MRI from the same setting. 2. Otherwise unremarkable cervical spine MRI with without contrast. No canal stenosis or foraminal stenosis. Dictated by: Mason Solorio M.D. on 08/20/2020 at 8:48 Approved by: Mason Solorio M.D. on 08/20/2020 at 8:52
--- NOTE | 2020-08-20 00:32 | DI.MRI.S_ITS ---
PROCEDURE: MR HEAD/BRAIN WO/W CON INDICATIONS: left arm numbness, tingling, temperature change TECHNIQUE: Noncontrast axial T1 spin echo, axial T2 fast spin echo, sagittal and axial FLAIR, coronal T2 fast spin echo, axial gradient echo, axial diffusion and ADC through the brain. After the administration of contrast, axial and coronal 3D VIBE or T1 spin echo with fat saturation through the brain. COMPARISON: [facility], CT, CT ANGIO HEAD AND NECK, 08/19/2020, 22:48. FINDINGS: Image quality: Excellent. CSF Spaces: Basal cisterns are patent. No extra-axial fluid collections. Ventricles are normal in size and shape. Brain: No midline shift. No intracranial bleeds or masses. No abnormal intracranial enhancement. The brainstem appears normal. There is a tiny area of acute infarct in the inferior medial right cerebellum. There is associated restricted water diffusion. Reference image 57 of series 11. There is a small amount associated cytotoxic edema noted on the FLAIR sequence. Reference image 5 of series 7. No chronic ischemic insults. Normal intravascular flow voids are present. Again noted is a diffusely diminutive right vertebral artery and a dominant left vertebral artery. Skull and face: Calvarial marrow is normal in signal. Orbits appear normal. Sinuses: Sinuses and mastoids appear clear. IMPRESSION: 1. Tiny acute inferior medial right cerebellar infarct. This infarct has occurred long enough ago for there to be associated cytotoxic edema noted on the FLAIR imaging. 2. 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 3. Brain parenchyma is otherwise normal in appearance. Dictated by: Mason Solorio M.D. on 08/20/2020 at 8:40 Approved by: Mason Solorio M.D. on 08/20/2020 at 8:47
[2020-08-20 00:42] LABS: Ur Creatinine Normal (Normal); Ur Specific Gravity Normal (Normal); Urine Tetrahydrocannabinol Negative (Negative); Urine pH Normal (Normal)
[2020-08-20 00:45] LABS: UR Morphine/Opiate cutoff 300 Negative (Negative); Urine Amphetamines Positive (Negative); Urine Barbiturates Negative (Negative); Urine Benzodiazepines Negative (Negative); Urine Cocaine Negative (Negative); Urine MDMA Negative (Negative); Urine Methadone Negative (Negative); Urine Methamphetamines Negative (Negative); Urine Oxycodone Negative (Negative); Urine Phencyclidine Negative (Negative); Urine Tricyclic Antidepressant Negative (Negative)
[2020-08-20] MEDS: ASPIRIN 81 MG CHEW TAB 324 MG PO (10:28)
[2020-08-20] MEDS: ATORVASTATIN 20 MG TABLET 40 MG PO (10:48)
[2020-08-20 10:51] LABS: COVID19 -Nasal RAPID Negative (Negative)
--- NOTE | 2020-08-20 15:44 | DI.ECHO.S_ITS ---
[place] +---------+ [facility] +---------+ : : [address] : : : : [id number] : : : : Phone: [phone]+ Echocardiogram Report + + :Name: BELINDA OLIVER Study Date: 08/21/2020 Height: 67 in : :[facility] ReadingLocation: Weight: 170 lb : : Gender: Male BSA: 1.9 m2 : :: 1985 Age: 35 yrs BP: 130/77 mmHg: :Reason For Study: CVA : :Ordering Physician: VISHAL, : :LIAN Performed By: Magnolia Ortiz : :Referring: LIAN RODGERS : + + Interpretation Summary Normal echo study. Injection of contrast documented no interatrial shunt. Procedure: A two-dimensional transthoracic echocardiogram with color flow and Doppler was performed. There is no prior echocardiogram noted for this patient. A saline contrast injection was performed to assess for cardiac shunting. The injection was performed through an intravenous line in the left arm. The study quality was technically adequate. The patient was in sinus rhythm with heart rates between 65-80 bpm during the exam. Left Ventricle: The left ventricle is normal in size and wall thickness. The ejection fraction is estimated to be 60-65%. Left ventricular wall motion is normal. Diastolic parameters suggest probable normal left ventricular diastolic function and normal filling pressures. Right Ventricle: The right ventricle is normal in size and function. Atria: The left atrial size is normal. Right atrial size is normal. Injection of contrast documented no interatrial shunt. There is no Doppler evidence for an interatrial shunt. Mitral Valve: The mitral valve is normal in structure and function. There is trace mitral regurgitation. Aortic Valve: The aortic valve is trileaflet. The aortic valve opens well. There is no aortic valve stenosis. No aortic regurgitation is present. Tricuspid Valve: The tricuspid valve is normal in structure and function. No tricuspid regurgitation. Pulmonary artery pressures cannot be estimated because of the lack of a measurable TR jet velocity but the IVC suggests a CVP of around 3 mmHg. Pulmonic Valve: The pulmonic valve leaflets are thin and pliable; valve motion is normal. There is trace pulmonic regurgitation. Great Vessels: The aortic root is normal size. The dimensions of the ascending aorta are normal. The IVC is of normal diameter and collapses greater than 50% with a sniff. This suggests a low right atrial pressure of 3 mm Hg. Pericardium/ Pleura There is no pericardial effusion. There is no pleural effusion. MMode/2D Measurements & Calculations LVIDd: 4.2 cm LVOT diam: 2.0 cm LVIDs: 2.8 cm Ao root diam: 3.1 cm FS: 33.5 % asc Aorta Diam: 3.1 cm IVSd: 0.96 cm Ao Arch Diam (Prox Trans): 2.6 cm LVPWd: 0.80 cm LV gallegos. diameter/BSA (cm/m^2): 2.2 LV sys. diameter/BSA (cm/m^2): 1.5 LA A2 area: 14.8 cm2 RA long axis: 4.3 cm LA A4 area: 14.9 cm2 RA area: 13.2 cm2 LA length (vol): 4.1 cm RA vol: 34.0 ml LA vol: 45.4 ml RA : 18.0 ml/m2 LA vol index: 24.0 ml/m2 IVC diam: 0.66 cm RVD1 (basal): 3.6 cm TAPSE: 1.9 cm Doppler Measurements & Calculations Ao V2 max: 98.3 cm/sec LVOT Max Pipo: 89.8 cm/sec Ao V2 mean: 66.1 cm/sec LV V1 max P.2 mmHg Ao max P.9 mmHg LV V1 VTI: 18.1 cm Ao mean P.0 mmHg TIMOTEO(I,D): 3.2 cm2 Ao V2 VTI: 17.9 cm TIMOTEO(V,D): 2.8 cm2 sev ratio: 1.0 TIMOTEO indexed to BSA (cm^2/m^2): 1.7 MV E max pipo: 52.2 cm/sec PA V2 max: 89.9 cm/sec MV A max pipo: 42.8 cm/sec PA V2 mean: 55.9 cm/sec MV E/A: 1.2 PA mean P.5 mmHg Med Peak E' Pipo: 8.8 cm/sec PA pr(Accel): 29.3 mmHg E/E' med: 5.9 Lat Peak E' Pipo: 12.6 cm/sec E/E' lat: 4.2 E/e' average: 5.1 MV dec time: 0.22 sec SV(LVOT): 56.5 ml Electronically signed by: Wilfredo Ram on Reading Physician:08/21/2020 09:50 AM
[2020-08-20] MEDS: ATORVASTATIN 20 MG TABLET 80 MG PO (21:11)
--- NOTE | 2020-08-20 22:10 | PM.HP.1 ---
History of Present Illness History of Present Illness Date Patient Seen: 08/20/20 Time Patient Seen: 22:13 Chief complaint: Tingling/Numbness up LT side of body Narrative: Mr. Baker is a 35M with H lumbar radiculopathy, e-cigarette smoker, who comes in with left sided weakness. He states that he was started on adderal two weeks ago for a diagnosis of ADHD. He noticed he had a headache/neck pain on the right side at the base of his skull, which began six days ago. Four days ago he began noticing some left sided numbness in his left arm and left leg was noticed on Friday. He presented to ED with noted of left leg numbness and was eventually discharged with thought symptoms were related to lumbar radiculopathy. He presented back to the hospital today with worsening symptoms. He now notes left sided numbness including his arm and his torso. He had no symptoms in his face. He had no vision changes, no speech changes. He felt that he was leaning to the right and could not walk in a straight line. Prior to this starting he had been having sinus congestion about a week ago. In the ED workup was done, vitals notable for elevated blood pressure. WBC 12.8, creatinine 1.04, urine drug screen positive for ampehatamines, COVID negative. CT head with no acute process. 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 Cervical spine MRI showed no further acute processes. ED physician discussed with telestroke and [place] neurologist. Patient was outside window for TPA and had no indication for code IR. Initially there were attempts to transfer the patient, however, there were no beds available. Neurologist recommended admit to this hospital. Patient received aspirin and statin and was admitted for further workup. Patient History Medical History Lumbar disc herniation with radiculopathy Family & Social History Social History: household members spouse Prior Living Arrangements House Safety & Behavioral: Feels Safe in Current Yes Environment Been Physically Hurt or No Threatened By a Person Suicidal Ideation Description None Suicide Plan Description No Plan Tobacco & Substance use: Tobacco type e-cigarettes Smoking Status Current every day smoker alcohol intake current alcohol intake frequency a few times a month Substance Use Type does not use Meds Home Medications and Allergies Home Medications Medication Instructions Recorded Confirmed Type Acetaminophen Extra Strength 1,000 mg PO TID PRN 04/03/20 08/20/20 History gabapentin 300 mg PO BEDTIME #14 cap 08/19/20 08/20/20 Rx methylprednisolone [Medrol (Juan)] See Rx Instructions .ROUTE 08/19/20 08/20/20 Rx .COMPLEX #21 ea dextroamphetamine-amphetamine 20 mg PO DAILY 08/20/20 08/20/20 History Allergies Allergy/AdvReac Type Severity Reaction Status Date / Time azithromycin Allergy Unknown Rash Verified 08/19/20 21:26 Review of Systems Review of Systems Narrative: 14 systems reviewed and negative aside from what is noted in HPI Exam Vital Signs (past 8 hours): - 08/20/20 14:55 08/20/20 20:45 Temperature 97.5 F L 97.8 F Pulse Rate 84 71 Respiratory Rate 18 16 Blood Pressure 140/92 H 129/79 Pulse Oximetry 98 100 Oxygen Delivery Method Room Air Narrative Exam Narrative: GEN: no acute distress HEENT: noted anisocoria, left pupil more dilated than right, both reactive to light, moist mucous membranes NECK: no jvd, trachea midilne CV: regular rate and rhythm, with no murmurs PULM: clear bilaterally with no wheezes, rhonchi, rales ABD: soft, nontender, nondistended, with no organomegaly, normal bowel sounds EXT: warm and well perfused with no edema NEURO: awake and alert x4, moving all extremities, sensory deficits of entire left leg, left arm, and left side of torso, no sensory deficit of face, upper and lower extremities with normal strength 5/5, cranial nerves 2-12 intact, finger to nose intact bilaterally, visual mccoy intact, rapid alternating movements intact, heel to franks intact bilaterally SKIN: nor ashes Objective Labs Result Diagrams: 08/19/20 21:55 08/19/20 21:55 Labs: Laboratory Results - last 24 hr 08/19/20 08/19/20 08/20/20 21:55 21:55 00:33 WBC 12.8 H RBC 4.75 Hgb 14.6 Hct 42.0 MCV 88.3 MCH 30.6 MCHC 34.7 RDW 12.5 Plt Count 314 Neut % (Auto) 63.1 Lymph % (Auto) 26.2 [place] % (Auto) 9.3 Eos % (Auto) 0.4 L Baso % (Auto) 1.0 Neut # (Auto) 8100 H Lymph # (Auto) 3400 [place] # (Auto) 1200 H Eos # (Auto) 0 Baso # (Auto) 100 Sodium 140 Potassium 3.4 Chloride 102 Carbon Dioxide 29 BUN 12 Creatinine 1.04 Estimated GFR > 60.0 BUN/Creatinine Ratio 11.5 Glucose 82 Calcium 9.3 Total Creatine Kinase 101 CK-MB (CK-2) 0.46 CK-MB (CK-2) Rel Index 0.5 L Troponin I < 0.012 U Opiates 300ng/mL cut Negative Ur Oxycodone Screen Negative Urine Methadone Screen Negative Ur Barbiturates Screen Negative U Tricyclic Antidepress Negative Ur Phencyclidine Scrn Negative Ur Amphetamines Screen Positive H U Methamphetamines Scrn Negative Ur MDMA Scrn (Ecstasy) Negative U Benzodiazepines Scrn Negative Urine Cocaine Screen Negative U Marijuana (THC) Screen Negative SARS-CoV-2 (PCR) 08/20/20 10:32 WBC RBC Hgb Hct MCV MCH MCHC RDW Plt Count Neut % (Auto) Lymph % (Auto) [place] % (Auto) Eos % (Auto) Baso % (Auto) Neut # (Auto) Lymph # (Auto) [place] # (Auto) Eos # (Auto) Baso # (Auto) Sodium Potassium Chloride Carbon Dioxide BUN Creatinine Estimated GFR BUN/Creatinine Ratio Glucose Calcium Total Creatine Kinase CK-MB (CK-2) CK-MB (CK-2) Rel Index Troponin I U Opiates 300ng/mL cut Ur Oxycodone Screen Urine Methadone Screen Ur Barbiturates Screen U Tricyclic Antidepress Ur Phencyclidine Scrn Ur Amphetamines Screen U Methamphetamines Scrn Ur MDMA Scrn (Ecstasy) U Benzodiazepines Scrn Urine Cocaine Screen U Marijuana (THC) Screen SARS-CoV-2 (PCR) Negative Assessment & Plan Assessment & Plan narrative: Mr. Rincon is a 35M with PMH lumbar radiculopathy, ADHD, com in with left sided numbness found to have right sided cerebellar stroke. 1. Acute CVA -MRI confirms small cerebellar stroke, on the right side, with subtle cytotoxic edema -patient ordered for aspirin, high dose statin -etiology not clear, adderall rarely causes CVA, patient also with hypoplastic vertebral artery -ordered for ESR, CRP to consider vasculitis, HIV, syphillis, and hypercoagulable with factor V, protein c/s, antithrombin 3 workup -cardiac telemetry ordered -ordered lipids and A1c for risk stratification -blood pressure controlled, will allow for permissive hypertension -PT/OT/speech consulted -monitor closely for worsening signs of edema as at risk given cerebellar stroke -initially planned for transfer to higher level of care, but no beds available, this was discussed with telestroke Dr. Varma, and Dr. Hutchinson and Amandeep, may need to reconsult pending findings and to consider SALLY 3. ADHD -hold adderall for now DVT ppx: lovenox DIET: regular pending swallow eval IVF: none CODE: Full, proxy is Lorna Baker Quality MIPS - Admit I confirm the patient?s Advance Care Plan is present, Code status is documented, Surrogate decision maker is in patient?s record [If Yes, STOP here]: Yes
[2020-08-21] VITALS (18 sets, daily range): BP systolic 112–134; BP diastolic 70–87; PULSE 73–90; RESP 14; TEMP 36.1–37.1; O2SAT 93–98
[2020-08-21 06:21] LABS: Add Manual Diff / Slide Review NO; BUN Creatinine Ratio 16.4 (6-22); Basophils Absolute Auto 100 /uL (0-100); Basophils Percent Auto 0.9 % (0-2); Blood Urea Nitrogen 12 mg/dL (9-20); Calcium 9.2 mg/dL (8.4-10.2); Carbon Dioxide 26 mmol/L (22-32); Chloride 107 mmol/L (98-107); Cholesterol 147 mg/dL (140-199); Eosinophils Absolute Auto 100 /uL (0-450); Eosinophils Percent Auto 1.5 % (2-4); Estimated Glomerular Filt Rate > 60.0 mL/min (>60); Glucose 95 mg/dL (70-100); HDL Cholesterol 31 mg/dL (40-60); HEMOLYSIS < 15 (0-50); Hematocrit 42.4 % (41-53); Hemoglobin 14.7 g/dL (13.5-17.5); LDL Cholesterol Calculated 67 mg/dL (<100); Lymphocytes Absolute Auto 2600 /uL (1100-4500); Mean Corpuscular HGB Conc 34.6 % (30-36); Mean Corpuscular Hemoglobin 30.7 PG (26-34); Mean Corpuscular Volume 88.7 fL (80-100); Monocytes Absolute Auto 700 /uL (0-900); Monocytes Percent Auto 7.7 % (3-14); Neutrophils Absolute Auto 5500 /uL (1500-7000); Neutrophils Percent Auto 60.9 % (50-75); Platelet Count 288 X10^3/uL (150-400); Potassium 4.1 mmol/L (3.4-5.1); Red Blood Cell Count 4.78 X10^6/uL (4.5-5.9); Red Cell Distribution Width 12.5 % (11.6-14.8); Sodium 140 mmol/L (137-145); Triglycerides 243 mg/dL (35-150)
[2020-08-21 06:23] LABS: C-Reactive Protein Quant 0.5 mg/dL (<1.0)
[2020-08-21 07:01] LABS: Erythrocyte Sedimentation Rate 5 MM/HR (0-15)
--- NOTE | 2020-08-21 09:45 | OT.IP.EVAL ---
Current Diagnoses Cerebral infarction, unspecified (08/20/20) Past Medical History (Last Reviewed 08/20/20 @ 22:40 by Drew Chi MD) Lumbar disc herniation with radiculopathy Occupational Therapy Inpatient Evaluation/Re-Eval M1 PT/OT-IP Prior Functional Status Start: 08/21/20 08:46 Freq: NEEDED Status: Active Protocol: Document 08/21/20 11:46 AW (Rec: 08/21/20 13:01 AW [id number]) Medical Review Prior Functional Status Medical History Reviewed Yes Communication Pt is an effective verbal communicator. Mobility and Gait Independent Activities of Daily Living and IADL's Independent Prior Functional Level (Other details) Pt had lumbar surgery earlier this year to treat lumbar radiculopathy. He recently started medication for ADHD. Social History Household Members spouse Living Arrangements House Number of Floors (Floors) Two Floors Number of Stairs To Enter/Railing? 2 CORY with post on the right side. Pt climbs steps to bedroom level with L rail and R wall + 2 landings for turn) + more steps with wall on left and 1/ 2 wall on right. 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 He is and lives with his , Lorna. M2 OT-IP Current Condition Start: 08/21/20 12:51 Freq: Status: Active Protocol: Document 08/21/20 09:15 [facility] (Rec: 08/21/20 13:18 [facility] [id number]) Occupational Therapy Current Condition Current Condition Evaluation Date 08/21/20 Treatment Diagnosis Acute CVA, right cerebellar infarct with mild cytoxic edema Diagnosis Onset Date 08/20/20 M3 OT- IP Subjective and Pain Start: 08/21/20 12:51 Freq: Status: Active Protocol: Document 08/21/20 09:15 [facility] (Rec: 08/21/20 13:18 [facility] [id number]) OT- Subjective Occupational Therapy Visit Type Type Initial Evaluation Visit Start Time 09:15 Visit Stop Time 09:45 Total Visit Minutes 30 Occupational Therapy Visit Comments Patient Comments Pt already standing in the room when OT arrived and agreed to do OT eval. Pt's was in the room. Patient/Caregiver Goals TO go home. OT Pain Assessment Pain When Pain Assessed At Rest Pain Present Pain Present Denied Pain M4 OT- IP ADL's Start: 08/21/20 12:51 Freq: Status: Active Protocol: Document 08/21/20 09:15 [facility] (Rec: 08/21/20 13:18 [facility] [id number]) OT [id number] Comments OT Self-Feeding Comments NOt at meal time. OT ADL-Grooming Comments OT Grooming Comments NOt performed. OT ADL-Dressing General Eval Lower Body Dressing Ability Independent OT ADL-Toileting Comments OT Toileting Comments Pt states has been using the toilet on his own. OT ADL-Bathing Comments OT Bathing Comments Not performed. M5 OT- IP IADL's Start: 08/21/20 12:51 Freq: Status: Active Protocol: Document 08/21/20 09:15 [facility] (Rec: 08/21/20 13:18 [facility] [id number]) OT-Instrumental Activities of Daily Living Home Safety Awareness Awareness of Need for Assistance at Home Good Awareness Ability to Problem Solve Emergency Able to Problem Solve Situations Medication Management Medication Management Comments Pt's states to provide supervision as needed. Money Management Money Management Comments Pt's states to provide supervision as needed. Meal Preparation Meal Preparation Comments Pt's states to provide supervision as needed. Switchboard Manager Switchboard Manager Comments Pt's states to provide supervision as needed. M6 OT- IP Functional Cognition Start: 08/21/20 12:51 Freq: Status: Active Protocol: Document 08/21/20 09:15 [facility] (Rec: 08/21/20 13:18 [facility] [id number]) Cognitive Factors Limiting Selfcare Function Cognitive Ability Level of Alertness Alert Patient Orientation Name,Place,Situation Attention Span Ability Capable of Focused Attention, Capable of Sustained Attention Ability to Follow Commands Able to Follow One Step Commands Memory Description No Deficits Noted Safety Awareness No Deficits Noted Cognitive Tests SLUMS Per [employer] , pt scored 25/30. Cognitive Comments Cognitive Assessment Comments Pt scored 46 seconds on [place] Making Part B which implies intact/normal for visual attention, task switching, speed of processing, executive function, and mental flexibility. However when pt trying to average two numbers having a little difficulty and also trying to figure out a 4 varible chart not needing MIn /MODA to help look at the right chart Female versus male , and assist to figure out percentile for his given time. OT- Vision and Hearing OT- Vision Assessment Visual Acuity Glasses All The Time Occular Pursuits WFL Visual Convergence WFL Visual Perera WFL Vision Assessment Comments Left pupil slightly larger. M7 OT- IP Mobility and Balance Start: 08/21/20 12:51 Freq: Status: Active Protocol: Document 08/21/20 09:15 [facility] (Rec: 08/21/20 13:18 [facility] [id number]) OT-Transfer Assessment Sit to and From Stand Sit to and from Stand Independent Transfers Transfer Ability Independent Technique Transfer Destination Bed Comments Mobility Comments Pt independent in the room, able to get up and down from the floor and up onto the ledge by the window with good safety and balance. OT- Gait Assessment Comments Gait Ability Comments Independent. OT- Balance Assessment Sitting Balance and Reactions Static Sitting Balance Ability Normal Dynamic Sitting Balance Ability Normal Standing Balance and Reactions Static Standing Balance Ability Normal Dynamic Standing Balance Ability Good M8 OT- IP Objective Assessments Start: 08/21/20 12:51 Freq: Status: Active Protocol: Document 08/21/20 09:15 [facility] (Rec: 08/21/20 13:18 [facility] [id number]) OT Gross Range of Motion Upper Extremity Range of Motion Assessment Within Functional Limits OT Strength Upper Extremity Strength Assessment Within Functional Limits OT- Coordination Assessment Upper Extremity Finger to Nose Test Within Functional Limits Comments Coordination Comments right hand 9 hole peg 24.5 second and then 20 seconds, left hand 21 second. Right hand coordination decreased from left hand. OT Sensation Assessment Location Left Light Touch Intact/Normal Proprioception (Position) Impaired Comments Summary Comments Left arm distaly decreased for proprioception and kinesthesia and educated pt to be careful not to bump into objects on his left side especially at night. M9 OT- IP Assessment and Plan Start: 08/21/20 12:51 Freq: Status: Active Protocol: Document 08/21/20 09:15 [facility] (Rec: 08/21/20 13:18 [facility] [id number]) OT Summary Assessment and Plan Potential Rehabilitation Potential Good Analytic Complexity at Evaluation Low Summary OT Impairments Coordination,Functional Cognition Progress Towards Goals Progressing Toward Goals Assessment Summary Pt s/p CVA with mild deficits mainly for expressive aphasia, problem solving,and coordination. Pt looking to go home when medically stable. Pt may possibly need OT therapy pending how pt clears up, however pt able to work on it at home. Pt's states that pt will no longer be walking the dog. Goals Bathing Goal Independent OT-Other Goals Pt to be independenet to work on FMSand speed of movements. Days to Meet Goals 1 Frequency of Treatment Frequency Of Treatment Once a Day Treatment Plan OT Treatment Plan ADL Training,Therapeutic Exercises,Patient/Family Education,Discharge Planning Other Treatment Recommendations and Next Shower if still here. Treatment Focus Discharge Recommendations OT Discharge Recommendations Home with Assistance Transportation Needs at Discharge Private Vehicle
[2020-08-21] MEDS: ASPIRIN EC 81 MG TABLET PO (09:59)
[2020-08-21] MEDS: ENOXAPARIN 40 MG/0.4 ML SYRINGE SUBCUT (09:59)
[2020-08-21] MEDS: SODIUM CHLORIDE 0.9% FLUSH 10 ML IV (10:00)
--- NOTE | 2020-08-21 10:30 | SLP.IPNOTE ---
Pt was seen by TARGETING ACQUISITION OFFICER for screening of swallow safety, expressive/receptive/cognitive communication skills. Evaluation documented in [facility] but unable to save as chart note. Pt scored 25/30 on SLUMS, indicating mild cognitive impairments (Normal = 27/30). No overt swallow or expressive or receptive language skills were observed, although expressive language skills were noted by pt's . Will attempt further evaluation of language skills today; otherwise will f/u tmw, or if pt d/c's, recommend outpatient f/u.
--- NOTE | 2020-08-21 11:46 | PT.IIE ---
Current Diagnoses Cerebral infarction, unspecified (08/20/20) Medical History (Last Reviewed 08/20/20 @ 22:40 by Drew Chi MD) Lumbar disc herniation with radiculopathy Physical Therapy Inpatient Evaluation/Re-Eval M1 PT/OT-IP Prior Functional Status Start: 08/21/20 08:46 Freq: NEEDED Status: Active Protocol: Document 08/21/20 11:46 AW (Rec: 08/21/20 13:01 AW [id number]) Medical Review Prior Functional Status Medical History Reviewed Yes Communication Pt is an effective verbal communicator. Mobility and Gait Independent Activities of Daily Living and IADL's Independent Prior Functional Level (Other details) Pt had lumbar surgery earlier this year to treat lumbar radiculopathy. He recently started medication for ADHD. Social History Household Members spouse Living Arrangements House Number of Floors (Floors) Two Floors Number of Stairs To Enter/Railing? 2 CORY with post on the right side. Pt climbs steps to bedroom level with L rail and R wall + 2 landings for turn) + more steps wtih wall on left and 1/ 2 wall on right. 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 He is and lives with his , Lorna. M2 PT-IP Current Condition Start: 08/21/20 08:46 Freq: NEEDED Status: Active Protocol: Document 08/21/20 11:46 AW (Rec: 08/21/20 13:01 AW [id number]) Physical Therapy Current Condition Current Condition Evaluation Date 08/21/20 Treatment Diagnosis acute R cerebellar CVA; sensation disturbance Onset Date 08/20/20 M3 PT-IP Subjective Start: 08/21/20 08:46 Freq: NEEDED Status: Active Protocol: Document 08/21/20 11:46 AW (Rec: 08/21/20 13:01 AW [id number]) Subjective Physical Therapy Visit Type Type Initial Evaluation Visit Start Time 11:30 Visit Stop Time 11:46 Total Visit Minutes 16 Physical Therapy Visit Comments Patient Comments Pt is willing to participate with PT Patient Goals Hopes to d/c today and return to work. Therapy Pain Assessment Pain When Pain Assessed During Mobility Pain Present Pain Present Denied Pain M4 PT-IP Mobility and Gait Start: 08/21/20 08:46 Freq: NEEDED Status: Active Protocol: Document 08/21/20 11:46 AW (Rec: 08/21/20 13:01 AW [id number]) PT-Bed Mobility Assessment Supine to Sit Supine to Sit Independent Scooting Scooting to Edge of Bed Independent PT-Transfer Assessment Sit to and From Stand Sit to and from Stand Independent Equipment Transfer Assistive Device None Transfers Transfer Destination Bed,Chair Transfer Technique Stand Step Pivot Transfer Ability Level of Assist Independent Comments Mobility Comments Pt was lying in the bed as PT arrived. He completed all bed mobility, transfers, and ambulation without assist. Gait Assessment Gait Gait Assistance Required: Independent Distance (Feet) 300 Assistive Devices Assistive Device None Gait Deviations General Gait Pattern Within Normal Limits Comments Gait Comments Pt completed Functional Gait Assessment with score of 29/30 . Stair Climbing Assessment Evaluation Level of Assist On Stairs Independent Devices Stair Climbing Assistive Devices None Technique/Endurance Stair Climbing Direction Ascend and Descend Stair Climbing Technique Step Over Step Number of Steps Climbed 12 Query Text: Stair Climbing Set # Repetitions (reps) 1 PT-Balance Assessment Sitting Balance and Reactions Static Sitting Balance Ability Normal Dynamic Sitting Balance Ability Normal Standing Balance and Reactions Static Standing Balance Ability Normal Dynamic Standing Balance Ability Normal Device Used no AD Comments Other Balance Tests/Deviations/Treatment Pt able to recover from all : test positions of mini BESTtest with good stepping reactions in all directions Functional Assessments Functional Tests Functional Gait Assessment 29/30 - single point deducted for tandem walking M5 PT-IP Objective Assessments Start: 08/21/20 08:46 Freq: NEEDED Status: Active Protocol: Document 08/21/20 11:46 AW (Rec: 08/21/20 13:01 AW [id number]) Orientation Orientation/Cognition Level of Alertness Alert Orientation Name,Day of Week,Place, Situation Language Function Ability No Deficits Noted Safety Awareness Understands Safety Issues Memory Description No Deficits Noted Gross Range of Motion Upper Extremity ROM Assessment Within Functional Limits Lower Extremity ROM Assessment Within Functional Limits Strength Upper Extremity Strength Assessment Within Functional Limits Lower Extremity Strength Assessment Within Functional Limits Comments Strength Comments No unilateral deficit on exam. No lean in stance or gait. Sensation Assessment Sensation Gross Sensation Left UE Impaired,Left LE Impaired Light Touch Impaired Proprioception (Position) Impaired Comments Sensation Comments Pt reports returning sensation to left UE but continues to note numbness and temperature sensation disturbance in left trunk and lower extremity. Muscle Tone Muscle Tone WNL Yes Other Assessments Other Other Assessments Occulomotor and vestibular exam grossly normal. M6 PT-IP Treatment Start: 08/21/20 08:46 Freq: NEEDED Status: Active Protocol: Document 08/21/20 11:46 AW (Rec: 08/21/20 13:01 AW [id number]) Physical Therapy Treatment Education Education Provided Safety M7 PT-IP Assessment and Plan Start: 08/21/20 08:46 Freq: NEEDED Status: Active Protocol: Document 08/21/20 11:46 AW (Rec: 08/21/20 13:01 AW [id number]) PT Summary Assessment and Plan Potential Rehabilitation Potential Excellent Status of Condition at Evaluation Stable Summary Assessment Summary Jesse is a 35 yo man admitted with left sided weakness and sensation disturbance. MRI reveals small right cerebellar infarct. Pt is independent in all regards at baseline. On exam, pt's strength is symmetrical. He reports returning sensation in left UE but continues to experience impaired light touch and temperature sensation in his left trunk and lower extremity. These deficits are not affecting his mobility as evidenced by a score of 29/30 on Functional Gait Assessment. PT identifies no acute or subacute PT needs and will discharge this pt from caseload. Pt was educated on return precautions and was verbally able to teach back his MRI results and return precautions. Pt is safe for discharge home. Frequency of Treatment Frequency Of Treatment Discharge Recommendations To Nursing Amount of Assist Needed Independent Discharge Recommendations PT Discharge Recommendations Home Transportation Needs at Discharge Private Vehicle
--- NOTE | 2020-08-21 12:09 | P.DS_ITS ---
History of Present Illness History of Present Illness Date Patient Seen: 08/21/20 Time Patient Seen: 12:09 Chief complaint: Tingling/Numbness up LT side of body Narrative: Per Dr. Chi, Mr. Baker is a 35M with H lumbar radiculopathy, e-cigarette smoker, who comes in with left sided weakness. He states that he was started on adderal two weeks ago for a diagnosis of ADHD. He noticed he had a headache/neck pain on the right side at the base of his skull, which began six days ago. Four days ago he began noticing some left sided numbness in his left arm and left leg was noticed on Friday. He presented to ED with noted of left leg numbness and was eventually discharged with thought symptoms were related to lumbar radiculopathy. He presented back to the hospital today with worsening symptoms. He now notes left sided numbness including his arm and his torso. He had no symptoms in his face. He had no vision changes, no speech changes. He felt that he was leaning to the right and could not walk in a straight line. Prior to this starting he had been having sinus congestion about a week ago. In the ED workup was done, vitals notable for elevated blood pressure. WBC 12.8, creatinine 1.04, urine drug screen positive for ampehatamines, COVID negative. CT head with no acute process. 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 Cervical spine MRI showed no further acute processes. ED physician discussed with telestroke and [place] neurologist. Patient was outside window for TPA and had no indication for code IR. Initially there were attempts to riddle sfer the patient, however, there were no beds available. Neurologist recommended admit to this hospital. Patient received aspirin and statin and was admitted for further workup. Discharge Providers Provider Date of admission: 08/20/20 12:34 Discharge Date: 08/21/20 Primary care physician: Juan Miguel Kraft DO Consults: 08/20/20 15:43 Consult to Discharge Planning Routine Comment: Consult to Occupational Therapy Evaluate & Treat Comment: Physician Instructions: Evaluate and treat Consult to Physical Therapy Evaluate & Treat Comment: Physician Instructions: Evaluate and Treat Consult to Speech Therapy Evaluate & Treat Comment: Physician Instructions: Evaluate and treat Discharge provider: Sidney Mckay DO Summary Hospital Course Discharge Diagnosis: 1. Acute R cerevallar CVA, present on admission. 2. lumbar radiculopathy, chronic 3. ADHD, chronic Hospital Course: Mr. Rincon is a 35M with H lumbar radiculopathy, ADHD, who presented with left sided numbness found to have right sided cerebellar stroke. His symptoms improved much more quickly than expected after admission and he was able to be discharged home the next day after therapy evaluations. Echocardiogram was performed and the patient's heart appears normal without ev idence for PFO or any structural abnormalities. ESR and CRP were within normal limits essentially ruling out a vasculitis. Further workup with HIV, syphilis, and hypercoagulable states was sent and has thus been unremarkable but a few results are still pending. His cholesterol was mildly elevated, and given his acute CVA on MRI he was started on aspirin and high-dose statin therapy. Given improvement in symptoms, the patient was discharged home and he should follow-up with his primary care provider as soon as possible for possible neurology referral given his young age and to follow up the above evaluation for a hypercoagulable state though this seems less likely at this time. Exam Vital Signs (past 8 hours): - 08/21/20 06:00 08/21/20 07:00 08/21/20 07:55 Temperature 98.8 F Pulse Rate 77 73 85 Respiratory Rate 14 14 Blood Pressure 134/71 119/73 Pulse Oximetry 96 95 97 08/21/20 08:00 08/21/20 09:00 08/21/20 10:00 Temperature 97.5 F L 97.0 F L 97.3 F L Pulse Rate 75 Respiratory Rate Blood Pressure 112/70 121/81 Pulse Oximetry 95 96 08/21/20 10:01 08/21/20 10:55 08/21/20 11:00 Temperature 97.3 F L 97.8 F Pulse Rate 90 89 88 Respiratory Rate Blood Pressure 125/85 124/84 Pulse Oximetry 94 93 94 08/21/20 12:00 08/21/20 12:01 08/21/20 12:02 Temperature 97.2 F L 97.2 F L Pulse Rate 82 74 Respiratory Rate Blood Pressure 124/73 Pulse Oximetry 96 94 Oxygen Delivery Method Room Air Oxygen Flow Rate 0 Narrative Exam Narrative: GEN: no acute distress HEENT: noted anisocoria, left pupil more dilated than right, both reactive to light, moist mucous membranes NECK: no jvd, trachea midilne CV: regular rate and rhythm, with no murmurs PULM: clear bilaterally with no wheezes, rhonchi, rales ABD: soft, nontender, nondistended, with no organomegaly, normal bowel sounds EXT: warm and well perfused with no edema NEURO: awake and alert x4, moving all extremities, sensory deficits of entire left leg to sharp but okay to light touch, upper extremity improved. no sensory deficit of face, upper and lower extremities with normal strength 5/5, cranial nerves 2-12 intact, finger to nose intact bilaterally, visual mccoy intact. SKIN: no rashes or erythema Objective Labs Result Diagrams: 08/21/20 04:56 08/21/20 04:56 Labs: Laboratory Results - last 24 hr 08/20/20 08/21/20 08/21/20 23:40 04:56 04:56 WBC 9.0 RBC 4.78 Hgb 14.7 Hct 42.4 MCV 88.7 MCH 30.7 MCHC 34.6 RDW 12.5 Plt Count 288 Neut % (Auto) 60.9 Lymph % (Auto) 29.0 [place] % (Auto) 7.7 Eos % (Auto) 1.5 L Baso % (Auto) 0.9 Neut # (Auto) 5500 Lymph # (Auto) 2600 [place] # (Auto) 700 Eos # (Auto) 100 Baso # (Auto) 100 ESR Sodium 140 Potassium 4.1 Chloride 107 Carbon Dioxide 26 BUN 12 Creatinine 0.73 Estimated GFR > 60.0 BUN/Creatinine Ratio 16.4 Glucose 95 Hemoglobin A1c Calcium 9.2 C-Reactive Protein Triglycerides 243 H Cholesterol 147 LDL Cholesterol, Calc 67 HDL Cholesterol 31 L Nasal Screen MRSA (PCR) Negative for mrsa 08/21/20 08/21/20 08/21/20 04:56 04:56 04:56 WBC RBC Hgb Hct MCV MCH MCHC RDW Plt Count Neut % (Auto) Lymph % (Auto) [place] % (Auto) Eos % (Auto) Baso % (Auto) Neut # (Auto) Lymph # (Auto) [place] # (Auto) Eos # (Auto) Baso # (Auto) ESR 5 Sodium Potassium Chloride Carbon Dioxide BUN Creatinine Estimated GFR BUN/Creatinine Ratio Glucose Hemoglobin A1c 5.0 Calcium C-Reactive Protein 0.5 Triglycerides Cholesterol LDL Cholesterol, Calc HDL Cholesterol Nasal Screen MRSA (PCR) PFSH Medical History Lumbar disc herniation with radiculopathy Social History household members: spouse Smoking Status: Current every day smoker alcohol intake: current Discharge Plan Discharge Plan Patient Disposition: Home Provider Discharge Comment: You were admitted to the hospital after a stroke. Recommend you follow up with a PCP for further evaluation. Echocardiogram read is still pending but we will call you back if this is anything other than normal (expected to be normal). You were started on medications. Evaluation for what we call hypercoagulability, or forming more blood clots, was sent and is still pending but initial results are thus far unremarkable. Nursing Discharge Comment: Per Dr. Mckay: You may return to work as soon as tomorrow 08/22/20. You have no activity restrictions and are ok to drive if you a re feeling well. Discharge orders & Medications Prescriptions: New aspirin 81 mg Tablet,Delayed Release (Dr/Ec) 81 mg PO DAILY 30 Days Qty: 30 RF: 0 atorvastatin 80 mg tablet 80 mg PO BEDTIME 30 Days Qty: 30 RF: 0 Continued gabapentin 300 mg capsule 300 mg PO BEDTIME Qty: 14 RF: 0 dextroamphetamine-amphetamine 20 mg Capsule,Extended Release 24hr 20 mg PO DAILY RF: 0 Acetaminophen Extra Strength 500 mg tablet 1,000 mg PO TID PRN (Reason: Pain (Scale Score 4-6)) RF: 0 Discontinued methylprednisolone [Medrol (Juan)] 4 mg tablets,dose pack See Rx Instructions .ROUTE .COMPLEX Qty: 21 RF: 0 Follow up/Referrals: Juan Miguel Kraft DO [Primary Care Provider] - (Please call and schedule a follow up appointment with your provider as soon as possible. ) Diet/Activity/Treatments Diet: Diet as Tolerated and Regular Activity: As tolerated Visit Report/Discharge Packet Instructions: DI for Stroke-Ischemic, Mediterranean Diet May Reduce the Risk of Stroke in People with High Risk o Discharge Data Primary Care Provider: Juan Miguel Kraft
--- NOTE | 2020-08-21 13:47 | PC.NURSE ---
Pt reports mild improvement in presenting symptoms. Plan to dc to home and f/u outpt with PCP. Reviewed dc packet and educational material regarding stroke, dietary needs, activity, s/s of worsening stroke, when to seek emergency medical treatment. Reviewed medications, side effects, next dose due. Instructed pt to f/u with PCP. Pt is seen on [facility]. States he will make his own f/u appt. Pt and spouse verbalize understanding of dc teaching. Pt was able to ambulate independently to POV escorted by TRUCK BODY REPAIRER. All belongings were gathered and sent with pt at time of dc 1330.
--- NOTE | 2020-08-21 13:47 | CM.DPC ---
DCP ASSESSMENT: Patient is a 35 year-old male admitted with an acute CVA. PCP is Juan Miguel Kraft. Primary payer is [employer] and self-pay. Patient had a recent ER admission on 08/18 for tingling and numbness of left hip. Pending therapy evaluations. 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 His Lorna was present. Educated patient on role of social work in discharge planning. Patient is independent at baseline and is in the [place]. He reported he is able to ambulate in room and take care of his ADL?s. Patient?s will provide transportation at time of discharge. PLAN: Anticipate D/C home when medically stable. CM Team to continue to follow therapy evaluations pending anticipate if therapy is needed he can complete therapy as an outpatient. JAXSON Kraus MSW Student Discharge Planning/Care Management Advanced directive, confirm from FAMILY Start: 08/20/20 15:31 Freq: Q24H Status: Active Protocol: Document 08/20/20 15:31 HCW (Rec: 08/20/20 21:16 HCW [id number]) Advance Directive, confirm on record Time 21:16 Person contacted patinet Copy received No CM Discharge Assessment Start: 08/21/20 10:41 Freq: Status: Active Protocol: Document 08/21/20 10:41 AL (Rec: 08/21/20 10:43 AL [id number]) Discharge Planning Assessment Assigned Whip Sawyer JAXSON Davenport Student Contact Information Lorna Baker, Advance Directives? No History Provided By Patient,Medical Record Has Patient been admitted in last 30 Yes days? Comment 08/18 he had tinglining and numbness of left hip Prior Living Arrangements House Household Members spouse Type of transporation used prior to Drives own vehicle admit Independent with ADL's Yes Is patient alert and oriented? Yes Caregiver for Another No Discharge Plan Home Transportation Arrangement Lorna will provide transportation Whiteboard Updated in Patient Room with Yes name and ext. # of Whip Sawyer Review Status In Process
[2020-08-21 16:08] LABS: HIV 1 & 2 Ab/Ag 4th Gen Combo NEGATIVE (NEGATIVE)
[2020-08-22 08:13] LABS: RPR Screen Non Reactive (Non Reactive)
[2020-08-24 02:46] LABS: Antithrombin Activity 113 % (75-135); Antithrombin Antigen 98 % (72-124); Protein C-Functional 158 % (73-180); Protein S-Functional 111 % (63-140)
== END 2020-08-21 13:30 | disposition home or self-care (01) | DRG 66 ==
LOC: ED 08-20 12:33 → AC 08-20 14:56 → ICU 08-21 09:04 → AC 08-21 10:10 → ICU 08-21 10:15 → AC 08-25 15:52
PROVIDERS: Emergency Medicine; Admitting Provider Internal Medicine; Emergency Provider Emergency Medicine; PCP Family Medicine; Referring Provider Emergency Medicine; Visit Provider Internal Medicine
DX: I63.9 Cerebral infarction, unspecified (principal); R20.0 Anesthesia of skin; F90.9 Attention-deficit hyperactivity disorder, unspecified type; M54.16 Radiculopathy, lumbar region; F17.290 Nicotine dependence, other tobacco product, uncomplicated; Z20.822 Contact with and (suspected) exposure to COVID-19
CPT/HCPCS: 36415; 70450; 70496; 70498; 70553; 72156; 80048; 80061; 80305; 81003; 81241; 82550; 82553; 82962; 83036; 84484; 85025; 85300; 85301; 85303; 85306; 85651; 86140; 86592; 87389; 87635; 87797; 92523; 93005; 93306; 94762; 96360; 96361; 97161; 97165; 97530; 99285; C9803; A9579; J1650; Q9967

== ENCOUNTER 2021-09-09 15:04 | Emergency (ER) | payer OTHER, SELFPAY ==
[2020-10-02 13:48] VITALS: BMI 26.6
[2021-09-09 15:15] VITALS: BP 131/81; PULSE 79; RESP 16; TEMP 36.5; O2SAT 97; BMI 25.8
--- NOTE | 2021-09-09 16:18 | ED.BACK ---
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 Patient was weed whacking at home for approximately 40 minutes on Friday and the pain started the following morning. Patient reports he had a L5 discectomy several years ago and periodically has low back pain and right-sided sciatica. Patient takes Advil 3 times a day for the discomfort. Patient denies any loss of control of bowel or bladder. Patient endorses ?walking funny? when he is having this pain. Related Data Home Medications Medication Instructions Recorded Confirmed aspirin 81 mg tablet,delayed 81 mg PO DAILY 10/23/20 12/13/20 release (Adult Low Dose Aspirin) atorvastatin 80 mg tablet (Lipitor) 80 mg PO DAILY 10/23/20 12/13/20 Previous Rx's Medication Instructions Recorded hydrocodone 5 mg-acetaminophen 325 1 tab PO Q6H PRN pain #10 tabs 09/09/21 mg tablet Allergies Allergy/AdvReac Type Severity Reaction Status Date / Time azithromycin Allergy Unknown Rash Verified 12/13/20 11:08 Review of Systems <NAVYA Westbrook - Last Filed: 09/09/21 17:21> Review of Systems Narrative: Narrative: GENERAL: Denies chills, fatigue, fever, sweats. See HPI HEENT: Denies sinus pain, ear pain, sore throat, difficulty swallowing, dizziness. RESPIRATORY: Denies dyspnea, cough, wheezing, sputum. CARDIOVASCULAR: Denies chest pain, palpitations, edema. GASTROINTESTINAL: Denies nausea, vomiting, abdominal pain, diarrhea, constipation. : Denies dysuria, frequency, incontinence, hematuria, urinary retention, flank pain. MSK: Endorses low back pain radiating down right leg. SKIN: Denies rash, skin lesions, or pruritis. NEUROLOGIC: Denies weakness, dizziness, headache, numbness, confusion. PSYCHIATRIC: No concerning psychosocial issues. Patient History <NAVYA Westbrook - Last Filed: 09/09/21 17:21> Medical History Lumbar disc herniation with radiculopathy Social History household members: spouse Smoking Status: Former smoker alcohol intake: current Smoking Status: Former smoker tobacco type: e-cigarettes alcohol intake frequency: a few times a month Substance Use Type: does not use Exam <NAVYA Westbrook - Last Filed: 09/09/21 17:21> Narrative Exam Narrative: Exam Narrative: GENERAL: This is a well-nourished, well-developed patient, in no acute distress HEAD: Atraumatic. Normocephalic. EYES: Pupils equal round and reactive. Extraocular motions intact. No scleral icterus, injection or drainage. ENT: Nose without bleeding, purulent drainage. Throat without erythema, tonsillar hypertrophy or exudate. Airway patent. NECK: Trachea midline. No JVD or lymphadenopathy. Nontender. CARDIOVASCULAR: Regular rate and rhythm without murmurs, peripheral pulses intact, cap refill <2 sec. RESPIRATORY: Breath sounds equal and clear bilaterally. No wheezes, rales, or rhonchi. No cough. No increased respiratory effort. No accessory muscle use. GASTROINTESTINAL: Abdomen soft, non-tender, nondistended without guarding or rebound. No suprapubic pain. MSK: Moves all extremities. Normal range of motion, no clubbing or edema. Neurovascularly intact. NEURO: A&O x 3. SKIN: Warm, dry, no rashes or lesions noted. Initial Vital Signs Initial Vital Signs: Vital Signs Temperature 97.7 F 09/09/21 15:15 Pulse Rate 79 09/09/21 15:15 Respiratory Rate 16 09/09/21 15:15 Blood Pressure 131/81 09/09/21 15:15 Pulse Oximetry 97 09/09/21 15:15 Oxygen Delivery Method 09/09/21 15:15 Reviewed Back/Spine/Pelvis Other: BACK lead oxide mill tender around L4-5 but free of any obvious external abnormalities. There is no asymmetry, swelling, bruising or wound. There is no paraspinal tenderness or CVA tenderness. SI joints nontender. No pain over spinous processes. No symptoms of cauda equina such as saddle anesthesia. Sensation is grossly intact. ROM is limited due to pain. SLE is positive on right side Reflexes 2-3 at patella and achilles bilaterally. Resistive strengths are within normal limits Gait is normal. Heel toe balance is intact. <Sanford Botello MD - Last Filed: 09/22/21 12:16> Initial Vital Signs Initial Vital Signs: Vital Signs Temperature 97.7 F 09/09/21 15:15 Pulse Rate 79 09/09/21 15:15 Respiratory Rate 16 09/09/21 15:15 Blood Pressure 131/81 09/09/21 15:15 Pulse Oximetry 97 09/09/21 15:15 Oxygen Delivery Method 09/09/21 15:15 Course <NAVYA Westbrook - Last Filed: 09/09/21 17:21> Orders Ordered: Discontinued Medications Ketorolac Tromethamine (Ketorolac 30 Mg/Ml Vial) 30 mg IM NOW ONE Stop: 09/09/21 17:06 Last Admin: 09/09/21 17:09 Dose: 30 mg Documented By: RL Vital Signs Vital signs: Vital Signs - 8 hr 09/09/21 15:15 09/09/21 17:13 Temperature 97.7 F Pulse Rate 79 80 Respiratory Rate 16 18 Blood Pressure 131/81 125/82 Pulse Oximetry 97 98 Oxygen Delivery Method Room Air Room Air <Sanford Botello MD - Last Filed: 09/22/21 12:16> Orders Ordered: Discontinued Medications Ketorolac Tromethamine (Ketorolac 30 Mg/Ml Vial) 30 mg IM NOW ONE Stop: 09/09/21 17:06 Last Admin: 09/09/21 17:09 Dose: 30 mg Documented By: RL Vital Signs Vital signs: Vital Signs - 8 hr 09/09/21 15:15 09/09/21 17:13 Temperature 97.7 F Pulse Rate 79 80 Respiratory Rate 16 18 Blood Pressure 131/81 125/82 Pulse Oximetry 97 98 Oxygen Delivery Method Room Air Room Air MDM - Back Pain/Injury <NAVYA Westbrook - Last Filed: 09/09/21 17:21> Differential Diagnosis Differential diagnosis: Likely strain of lumbar region MDM Narrative Medical decision making narrative: 36-year-old male presents to the emergency department with lower back pain after weed whacking at home. History of L5 diskectomy. Full sensation and strength of right leg. Will discharge home with instructions to continue with hot and cold compresses to the affected site, Aleve and opioids for breakthrough pain. Consideration included that injury was non-traumatic, patient is not a IV drug user, no fever, neurovascular intact, no weakness, no signs of epidural abscess or saddle anesthesia. Discussed return precautions and plan of care with patient and spouse, who were agreeable with course of action. Discharge Plan Departure Patient Disposition: Home Clinical Impression: Acute low back pain Instructions: DI for Back Pain With Sciatica Activity Restrictions/Additional Instructions: *You have been diagnosed with a low back strain. As we discussed, please continue to use hot or cold compresses to the affected site, Advil 2 tabs 3 times a day with food and use the pain medication as needed for breakthrough pain. We are giving you a injection Toradol today, so please do not take anymore Advil today. He may consider speaking with your family doctor about manual therapy, acupuncture, elderly caregiver, etc.. If you develop intolerable pain or loss of control of bowel or bladder, please return to the emergency room immediately. *What to do: *Please continue to take your regular medications as directed. [ ] New medication prescriptions sent to your pharmacy: [ ] [ x] New medication written as a paper prescription [ ] No new medications given *Please follow up with your primary care provider in 2-3 days, call for an appointment. Let them know you were seen in the Emergency Department and that we ask that you be seen in follow up. We will electronically transmit a record of today's note if your PCP is in our system *If you do not have a primary care provider please contact the [facility] Resource line at [phone]. They will ask some questions about your medical history and help get you set up with a doctor in the community. ? Return to ER if you should have any new, worsening or concerning symptoms, such as worsening pain, severe headache, confusion, chest pain, difficulty breathing, fever greater than 101 F, shaking chills, persistent vomiting to the point that you cannot drink fluids, or other new or worsening symptoms. Prescriptions: New hydrocodone-acetaminophen 5-325 mg tablet 1 tab PO Q6H PRN (Reason: pain) Qty: 10 0RF No Action aspirin [Adult Low Dose Aspirin] 81 mg tablet,delayed release (DR/EC) 81 mg PO DAILY atorvastatin [Lipitor] 80 mg tablet 80 mg PO DAILY Referrals: Juan Miguel Kraft DO [Primary Care Provider] - Visit Report Forms: Patient Portal/API <Sanford Botello MD - Last Filed: 09/22/21 12:16> Cosign ED Attending Cosignature Attestation: I was immediately available in the department for consultation. This documentation has been reviewed and I agree with assessment and plan. Supervised by Sanford Botello MD
[2021-09-09] MEDS: KETOROLAC 30 MG/ML VIAL IM (17:09)
[2021-09-09 17:13] VITALS: BP 125/82; PULSE 80; RESP 18; O2SAT 98
== END 2021-09-09 17:14 | disposition home or self-care (01) ==
PROVIDERS: Emergency Provider Registered Nurse; PCP Family Medicine
DX: M54.50 Low back pain, unspecified (principal)
CPT/HCPCS: 96372; 99283; J1885

== ENCOUNTER → 2021-09-28 07:40 | Outpatient (CLI) | payer OTHER, SELFPAY ==
[2020-10-02 13:48] VITALS: BMI 26.6
--- NOTE | 2021-09-28 | DI.MRI.S_ITS ---
PROCEDURE: MR LUMBAR SPINE WO CON INDICATIONS: LOW BACK PAIN/NERVE ROOT AND PLEXUS DISORDER TECHNIQUE: Noncontrast sagittal T1 spin echo and T2 fast echo, sagittal STIR, and T2 fast spin echo through the lumbar spine. In cases with scoliosis, additional coronal T2 fast spin echo may be performed. COMPARISON: [facility], XR LUMBAR SPINE 2-3V, 04/03/2020, 12:59. [facility], MR, MR LUMBAR SPINE WO CON, 03/11/2020, 9:21. FINDINGS: Image quality: Excellent. Alignment and Curvature: 5 lumbar type vertebral bodies are presumed. There is loss of normal lumbar lordosis. Roughly 4 mm of retrolisthesis of L4 on L5 is present. Bone Marrow: Marrow is of normal overall signal. No acute vertebral body compression fractures. There is mild reactive signal within the endplates adjacent to the L4-L5 intervertebral disc. Left hemilaminotomy at L4-L5. Spinal Cord: Conus medullaris terminates at the L1-L2 disc space level. Visualized cord demonstrates normal signal and size. Paraspinous Soft Tissues: No paravertebral masses. T12-L1: Normal appearance. L1-L2: Normal appearance. L2-L3: Normal appearance. L3-L4: Mild facet and ligamentum flavum hypertrophy. Mild epidural lipomatosis. Mild canal stenosis. Mild bilateral foraminal stenosis. No significant change. L4-L5: Moderate disc desiccation. Mild disc height loss. Moderate diffuse disc bulge with superimposed left paracentral protrusion, which is slightly decreased in size. Mild bilateral facet hypertrophy. Mild canal stenosis. Mild bilateral foraminal stenosis. Posterior deviation and compression of the left L5 nerve root within the lateral recess, slightly decreased . L5-S1: Normal appearance. IMPRESSION: 1. Postsurgical sequelae. 2. Slight decrease in L4-L5 disc protrusion with decreased compression and posterior deviation of the left L5 nerve root. Dictated by: Rodolfo Whitehead M.D. on 09/28/2021 at 9:36 Approved by: Rodolfo Whitehead M.D. on 09/28/2021 at 9:41
== END ==
PROVIDERS: PCP Student in an Organized Health Care Education/Training Program; Referring Provider Student in an Organized Health Care Education/Training Program; Visit Provider Student in an Organized Health Care Education/Training Program
DX: M51.26 Other intervertebral disc displacement, lumbar region (principal)
CPT/HCPCS: 72148

== ENCOUNTER → 2022-01-18 10:58 | Outpatient (CLI) | payer OTHER, SELFPAY ==
[2020-10-02 13:48] VITALS: BMI 26.6
[2022-01-18 11:25] LABS: COVID19 -Nasal RAPID Negative (Negative)
== END ==
PROVIDERS: PCP Student in an Organized Health Care Education/Training Program; Referring Provider Orthopaedic Surgery Orthopaedic Surgery of the Spine; Visit Provider Orthopaedic Surgery Orthopaedic Surgery of the Spine
DX: Z20.822 Contact with and (suspected) exposure to COVID-19 (principal)
CPT/HCPCS: 87635; C9803

== ENCOUNTER 2022-01-21 06:32 | Inpatient (IN) | payer OTHER, SELFPAY ==
[2020-10-02 13:48] VITALS: BMI 26.6
[2022-01-21] VITALS (19 sets, daily range): BP systolic 96–131; BP diastolic 59–89; PULSE 73–941; RESP 2–19; TEMP 36–36.9; O2SAT 93–99; BMI 27.3
[2022-01-21] MEDS: LACTATED RINGERS 1,000 ML 100 ML IV (07:03)
--- NOTE | 2022-01-21 07:39 | PM.PREOP ---
Pre-operative Note COVID-19 COVID-19 status: Negative Result date/Date tested (Pos, Neg/Pending): 01/20/22 Criteria for continued procedure: Expected advancement of disease process, Possibility delay results in more complex future surgery or treatment, Increased loss of function, Continuing or worsening of significant or severe pain, Deterioration of the patient's condition or overall health and Delay expected to result in less-positive ultimate med/surg outcome Interval Note History & Physical reviewed/Exam performed by Physician: Yes Changes to H&P: No
[2022-01-21] MEDS: CEFAZOLIN 2 GM/100 ML PREMIX 100 ML IV ×3 (08:00→23:35)
[2022-01-21] MEDS: BUPIVACAINE 0.25% (PF) 30 ML, EPINEPHrine 0.15 MG INJ (08:33)
[2022-01-21] MEDS: BUPIVACAINE LIPOSOME 266 MG/20 ML VIAL INJ (08:34)
--- NOTE | 2022-01-21 10:14 | DI.RAD.S_ITS ---
PROCEDURE: XR LUMBAR SPINE 2-3V INDICATIONS: L4-5 TLIF TECHNIQUE: 2 intraoperative fluoroscopic images of the lumbar spine were acquired. COMPARISON: [facility], , XR LUMBAR SPINE 2-3V, 04/03/2020, 12:59. FINDINGS: Two fluoroscopic images of the lower lumbar spine with fusion changes at L4-L5. IMPRESSION: Intraprocedural fluoroscopy was provided for guidance and anatomical localization. Please see the procedure report for further details. Dictated by: Tristian Wild M.D. on 01/21/2022 at 9:52 Approved by: Tristian Wild M.D. on 01/21/2022 at 9:54
--- NOTE | 2022-01-21 10:19 | PM.OP.1 ---
Operative Date/Time/Diagnoses Date of procedure: 01/21/22 Time of procedure: 07:40 Pre-op diagnosis: 1. L4-5 history of hemilaminectomy 2. L4-5 spinal stenosis with radiculopathy Post-op diagnosis: same Procedure & Clinicians Procedure: 1. L4-5 Postero-lateral and posterior interbody fusion 2. L4-5 interbody cage placement. 3. L4-5 decompressive laminectomy with bilateral facetecomies 4. L4-5 Posterior non-segmental instrumentation 5. [place] of bone marrow from iliac crest 6. Utilization of microsurgical technique and operating microscope Same procedure as scheduled: Yes Indications: Patient has been having chronic back pain and worsening lumbar radiculopathy. Patient failed multiple conservative management with worsening pain weakness and numbness in her lower extremity. Patient has been having difficulty performing activity of daily living. After discussing risks benefits of treatment options, patient elected proceed with surgery. Surgeon: Ramón Christine Supervisor Chassis Assembly: Aisha Chavira Click Yes if Unassisted: No Anesthesia Type: General Operative Notes Closure Type: primary Specimen(s): none sent Prosthetic devices, grafts, tissues, transplants, or devices: Globus revolve screws, Rise cage Estimated Blood Loss (mL): 20 Blood products transfused: none Procedure in detail: Patient was seen in the preoperative area. Risks and benefits of the surgery was discussed with the patient. Informed consent was obtained from the patient and placed in the chart. Surgical site was marked. Patient was taken to the operative room. General anesthesia was administered. Prophylactic antibiotic was given to the patient less than 30 min before the incision was made. Patient was placed into a prone position on the Kiran table. Patient's back was then prepped and draped in the sterile fashion. Time-out was performed at this time. Using AP and lateral C-arm imaging the interval between L4-5 was identified and marked on patient's back. A 2 inch incision 2 in from midline was made on the left side first. The fascia was incised in line with skin incision. Globus MARS retractors was placed inside the incision and docked onto the L4 lamina. Using microsurgical technique and operating microscope, a L4-5 laminectomy and L4-5 facetectomy was performed using a Kerrison rongeur. The disc space at L4-5 was identified. And a total diskectomy was performed at L4-5 level. The endplates were decorticated using a rasp and shaver. The total diskectomy and decortication was performed at L4-5 level in order to to accomplish a L4-5 fusion. The local bone from the laminectomy and facetectomy was saved for local bone grafting. After the total diskectomy and decortication was completed, Trifecta bone graft material was combined with local bone that was harvested earlier. At this time, a separate skin is incision was made over the iliac crest. A Jamshidi needle was inserted into the iliac crest through a separate skin incision. 5 cc of bone marrow aspiration was obtained through the separate skin incision using a Jamshidi needle from the iliac crest. The bone marrow aspiration was combined with local bone and the Trifecta bone grafting material. The bone grafting material was placed into the L4-5 interbody space along with a expandable cage. The cage was expanded to its maximum height using the torque limiting screwdriver. At this time a mirror image incision was made on the right side. The fascia was incised in line with the skin incision. Globus MARS retractor was inserted and docked onto the L4-5 posterolateral gutter. Using the power drill, posterior-lateral decortication was performed at L4-5 level until bleeding cortical bone was identified. The remaining bone grafting material was placed into the L4-5 posterior lateral gutter he order to accomplish posterolateral fusion at the L4-5 level. Using the double C-arm technique, pedicle screws were placed into the L4-5 pedicles bilaterally. This was done by placing the Jamshidi needle into the pedicles, then placing the guidewires over the Jamshidi needle, and finally placing the cannulated screws over the guidewires bilaterally. After the pedicle screws were placed, 2 titanium rods was locked into the heads of the pedicle screws using locking caps and torque limiting screwdriver. After all the hardware was placed, and confirmed with AP and lateral C-arm imaging, the wound was then irrigated with sterile normal saline and packed with Ray-Sidney gauze for 3 min to accomplish hemostasis. After the gauze was removed the deep fascia was closed with #1 Vicryl suture. The subcutaneous layer was closed with 2-0 Vicryl. The skin was closed with skin misael. Patient tolerated the procedure well. There were no complications. Complications: none Post-operative Condition: stable Disposition: PACU Plan for aftercare: Admit to inpatient hospital
[2022-01-21] MEDS: HYDROCODONE/ACET 5/325 TABLET 1 TAB PO ×2 (10:50→11:20)
[2022-01-21] MEDS: hydrOXYzine pamoate 25 MG CAPSULE PO ×2 (10:57→23:41)
[2022-01-21] MEDS: SODIUM CHLORIDE 0.9% 1,000 ML 100 ML IV ×2 (12:38→23:36)
--- NOTE | 2022-01-21 13:09 | PC.NURSE ---
Addendum entered by Lisette Jeffery R.N. 01/21/22 16:48: Patient worked with physical therapy and oxycodone given to patient was helpful with discomfort. He is resting comfortably and is using the urinal to void. Original Note: Patient has a dressing to his low back that is cdi, xerform with 4x4 and tegaderm intact. He states that he has mild pain and is requesting a tylenol. Will check to see what is available to him. Patient cms wnl and he denies numbness or tingling. States that he does have some pressure to back. He has voided in urinal and is comfortable.
[2022-01-21] MEDS: OXYCODONE IR 5 MG TABLET 10 MG PO ×2 (14:57→23:44)
--- NOTE | 2022-01-21 16:04 | PT.IIE ---
Current Diagnoses Other intervertebral disc displacement, lumbar region (01/21/22) Other specified postprocedural states (01/21/22) Surgery Performed Operation Date: 01/21/22 07:45 Actual Procedures p L4-5 TLIF - Ramón Christine MD Medical History (Last Reviewed 09/09/21 @ 17:17 by NAVYA Westbrook) Lumbar disc herniation with radiculopathy Physical Therapy Inpatient Evaluation/Re-Eval M1 PT/OT-IP Prior Functional Status Start: 01/21/22 15:08 Freq: NEEDED Status: Active Protocol: Document 01/21/22 16:04 AW (Rec: 01/21/22 16:44 AW [id number]) Medical Review Prior Functional Status Medical History Reviewed Yes Communication WNL. Pt is an effective verbal communicator. Mobility and Gait Independent without AD. 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 Pt has had decreased LLE sensation (light touch, temperature, and pressure) since that time but no other deficits. Social History Household Members spouse Living Arrangements House Number of Floors (Floors) Two Floors Number of Stairs To Enter/Railing? 2 CORY with post on the right side. Pt climbs steps to bedroom level with L rail and R wall + 2 landings for turn + more steps with wall on left and 1/2 wall on right. 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 He is . He lives with his Lorna. M2 PT-IP Current Condition Start: 01/21/22 15:08 Freq: NEEDED Status: Active Protocol: Document 01/21/22 16:04 AW (Rec: 01/21/22 16:44 AW [id number]) Physical Therapy Current Condition Current Condition Evaluation Date 01/21/22 Treatment Diagnosis L4-5 TLIF; difficulty in walking Onset Date 01/21/22 M3 PT-IP Subjective Start: 01/21/22 15:08 Freq: NEEDED Status: Active Protocol: Document 01/21/22 16:04 AW (Rec: 01/21/22 16:44 AW [id number]) Subjective Physical Therapy Visit Type Type Initial Evaluation Visit Start Time 15:43 Visit Stop Time 16:04 Total Visit Minutes 21 Notes [place] Dex Parson was present throughout. Physical Therapy Visit Comments Patient Comments Pt is willing to participate with PT Patient Goals Return home and get back to work within 2 weeks Therapy Pain Assessment Pain When Pain Assessed During Mobility Pain Present Pain Present Pain Reported Location low back Intensity 2 Scale Used Numeric (0 - 10) Description Pressure M4 PT-IP Mobility and Gait Start: 01/21/22 15:08 Freq: NEEDED Status: Active Protocol: Document 01/21/22 16:04 AW (Rec: 01/21/22 16:44 AW [id number]) PT-Bed Mobility Assessment Rolling Type of Rolling Log Rolling,Roll to Right Level of Assist Standby Assistance Supine to Sit Supine to Sit Standby Assistance PT-Transfer Assessment Sit to and From Stand Sit to and from Stand Standby Assistance,Use of Upper Extremities Equipment Transfer Assistive Device None,Gait Belt Transfers Transfer Destination Chair Transfer Technique ambulated with IV pole support Transfer Ability Level of Assist Standby Assistance Comments Mobility Comments Pt was lying in bed as PT arrived. Educated pt on post op precautions. Pt was already familiar since he has had back surgery before. He log rolled to his right and sat up EOB SBA with min cues for sequencing. He stood SBA and used the IV pole as support to walk around the room. He continued walking in the halls with IV pole support 200 feet . Gait was notable for slightly wide PRITESH (left more affected than right) but no other significant deviations. On return to the room, pt transferred to the chair SBA. He was left up in the chair with call light and tray table in reach. Pt agreed to call for mobility needs. Gait Assessment Gait Gait Assistance Required: Standby Assistance,Contact Guard Assist Distance (Feet) 200 Assistive Devices Assistive Device None,Gait Belt Gait Deviations General Gait Pattern Antalgic,Wide Based Gait Factors Limiting Gait Function Factors Limiting Gait Function Decreased Sensation,Pain Comments Gait Comments See mobility comments for details. Stair Climbing Assessment Comments Stair Climbing Comments Not assessed. PT-Balance Assessment Sitting Balance and Reactions Static Sitting Balance Ability Normal Dynamic Sitting Balance Ability Normal Standing Balance and Reactions Static Standing Balance Ability Good Dynamic Standing Balance Ability Good Device Used IV pole M5 PT-IP Objective Assessments Start: 01/21/22 15:08 Freq: NEEDED Status: Active Protocol: Document 01/21/22 16:04 AW (Rec: 01/21/22 16:44 AW [id number]) Orientation Orientation/Cognition Level of Alertness Alert Orientation Name,Day of Week,Place, Situation Language Function Ability No Deficits Noted Safety Awareness Understands Safety Issues Memory Description No Deficits Noted Gross Range of Motion Lower Extremity ROM Assessment Within Functional Limits Strength Lower Extremity Strength Hip 4/5 Knee 5/5 Ankle 4+/5 Sensation Assessment Sensation Gross Sensation Left LE Impaired Light Touch Impaired Proprioception (Position) Impaired Comments Sensation Comments LLE with impaired temperature discrimination and numbness s/ p R cerebellar CVA in July 2020. Muscle Tone Muscle Tone WNL Yes M6 PT-IP Treatment Start: 01/21/22 15:08 Freq: NEEDED Status: Active Protocol: Document 01/21/22 16:04 AW (Rec: 01/21/22 16:44 AW [id number]) Physical Therapy Treatment Education Education Provided Precautions,Weight Bearing Status,Post-Op Packet,Safety Other Treatments Other Treatment Performed Initiated sit to stand training from the chair in the room. Pt completed sit to stand with good hip hinge mechanics x 5. M7 PT-IP Assessment and Plan Start: 01/21/22 15:08 Freq: NEEDED Status: Active Protocol: Document 01/21/22 16:04 AW (Rec: 01/21/22 16:44 AW [id number]) PT Summary Assessment and Plan Potential Rehabilitation Potential Excellent Status of Condition at Evaluation Evolving Summary Impairments Pain,Strength,Sensation,Gait Assessment Summary Jesse is a 36yo man seen for PT evaluation on POD0 following L4-5 TLIF. He is independent in all regards at baseline but does have history of right cerebellar CVA with resultant LLE sensation disturbance. On assessement today, pt required SBA to [facility] for mobility with IV pole support. Pt is expected to progress and be safe to discharge home with assist once medically stable. He will need to walk functional distances without AD and complete stair training before discharge. Goals Bed Mobility Goal Independent Transfer Goal Independent Gait Goal Independent Gait Distance 300 Other Goals - up/down 15 steps with single rail SBA Days to Meet Goals 2 Frequency of Treatment Frequency Of Treatment Twice a Day Treatment Plan Physical Therapy Treatment Plan Bed Mobility Training,Transfer Training,Gait Training, Therapeutic Exercise,Balance Retraining,Post Op Education, Discharge Planning,Hot or Cold Pack,Neuromuscular Re-ed Other Recommendations and Next Treatment precautions; gait without AD; Focus stairs Precautions Lumbar Precautions Log Roll,No Twisting,Limit Bending,Lifting Restriction of 10 lbs,Gait Belt above Incisional Area Discharge Recommendations PT Discharge Recommendations Home,Home with Assistance Transportation Needs at Discharge Private Vehicle
[2022-01-21] MEDS: DOCUSATE 100 MG CAPSULE PO (21:46)
[2022-01-21] MEDS: SENNOSIDES 8.6 MG TABLET 17.2 MG PO (21:46)
[2022-01-22 00:27] VITALS: BP 112/68; PULSE 89; RESP 20; TEMP 36.8; O2SAT 97
[2022-01-22 04:30] VITALS: BP 117/75; PULSE 72; RESP 19; TEMP 36.8; O2SAT 99
[2022-01-22] MEDS: OXYCODONE IR 5 MG TABLET 10 MG PO ×2 (08:10→11:47)
[2022-01-22] MEDS: DOCUSATE 100 MG CAPSULE PO (08:10)
--- NOTE | 2022-01-22 08:22 | PT.IPTN ---
Current Diagnoses Other intervertebral disc displacement, lumbar region (01/21/22) Other specified postprocedural states (01/21/22) Surgery Performed Operation Date: 01/21/22 07:45 Actual Procedures p L4-5 TLIF - Ramón Christine MD Physical Therapy Treatment Note M2 PT-IP Current Condition Start: 01/21/22 15:08 Freq: NEEDED Status: Active Protocol: Document 01/21/22 16:04 AW (Rec: 01/21/22 16:44 AW [id number]) Physical Therapy Current Condition Current Condition Evaluation Date 01/21/22 Treatment Diagnosis L4-5 TLIF; difficulty in walking Onset Date 01/21/22 M3 PT-IP Subjective Start: 01/21/22 15:08 Freq: NEEDED Status: Active Protocol: Document 01/22/22 08:09 AMB (Rec: 01/22/22 08:22 AMB [id number]) Subjective Physical Therapy Visit Type Type Treatment Note Visit Start Time 07:30 Visit Stop Time 08:00 Total Visit Minutes 30 Physical Therapy Visit Comments Patient Comments Pt is interested in getting up Therapy Pain Assessment Pain When Pain Assessed At Rest Pain Present Pain Present Denied Pain M4 PT-IP Mobility and Gait Start: 01/21/22 15:08 Freq: NEEDED Status: Active Protocol: Document 01/22/22 08:09 AMB (Rec: 01/22/22 08:22 AMB [id number]) PT-Bed Mobility Assessment Rolling Type of Rolling Log Rolling,Roll to Right Level of Assist Standby Assistance Supine to Sit Supine to Sit Standby Assistance PT-Transfer Assessment Sit to and From Stand Sit to and from Stand Standby Assistance,Use of Upper Extremities Equipment Transfer Assistive Device None Transfers Transfer Destination Chair Comments Mobility Comments Pt was chilly and donned underwear and sweatpants by sitting in chair and then standing up to pull up. Verbal cues to avoid twisting and bending. Gait Assessment Gait Gait Assistance Required: Standby Assistance Distance (Feet) 200 Assistive Devices Assistive Device None Gait Deviations General Gait Pattern Antalgic Comments Gait Comments Pt ambulated to stairs with slightly slow gait, but otherwise ambulated well without AD, PT propelled IV pole. Stair Climbing Assessment Technique/Endurance Stair Climbing Direction Ascend and Descend Stair Climbing Technique Step Over Step Number of Steps Climbed 4 Stair Climbing Set # Repetitions (reps) 3 Comments Stair Climbing Comments Pt needed to use 1 railing and was slow and careful, but was able to turn appropriately in addition to ascending and descending with SBA. PT-Balance Assessment Sitting Balance and Reactions Static Sitting Balance Ability Normal Dynamic Sitting Balance Ability Normal M5 PT-IP Objective Assessments Start: 01/21/22 15:08 Freq: NEEDED Status: Active Protocol: Document 01/21/22 16:04 AW (Rec: 01/21/22 16:44 AW [id number]) Orientation Orientation/Cognition Level of Alertness Alert Orientation Name,Day of Week,Place, Situation Language Function Ability No Deficits Noted Safety Awareness Understands Safety Issues Memory Description No Deficits Noted Gross Range of Motion Lower Extremity ROM Assessment Within Functional Limits Strength Lower Extremity Strength Hip 4/5 Knee 5/5 Ankle 4+/5 Sensation Assessment Sensation Gross Sensation Left LE Impaired Light Touch Impaired Proprioception (Position) Impaired Comments Sensation Comments LLE with impaired temperature discrimination and numbness s/ p R cerebellar CVA in July 2020. Muscle Tone Muscle Tone WNL Yes M6 PT-IP Treatment Start: 01/21/22 15:08 Freq: NEEDED Status: Active Protocol: Document 01/21/22 16:04 AW (Rec: 01/21/22 16:44 AW [id number]) Physical Therapy Treatment Education Education Provided Precautions,Weight Bearing Status,Post-Op Packet,Safety Other Treatments Other Treatment Performed Initiated sit to stand training from the chair in the room. Pt completed sit to stand with good hip hinge mechanics x 5. M7 PT-IP Assessment and Plan Start: 01/21/22 15:08 Freq: NEEDED Status: Active Protocol: Document 01/22/22 08:09 AMB (Rec: 01/22/22 08:22 AMB [id number]) PT Summary Assessment and Plan Summary Assessment Summary John was seen for gait training , stair training, and transfer training. He was able to ambulate without AD, and ascend/descend stairs with 1 railing and SBA. His will be home with him most of the time. He does have a cane at home but was wondering if it was at an appropriate height, so was given verbal instructions for cane height. He was able to don LE clothing with good awareness of lumbar precautions. He is cleared by PT to discharge home with his when he is medically cleared. Goals Bed Mobility Goal Independent Transfer Goal Independent Gait Goal Independent Gait Distance 300 Other Goals - up/down 15 steps with single rail SBA Days to Meet Goals 2 Frequency of Treatment Frequency Of Treatment Discharge Treatment Plan Physical Therapy Treatment Plan Bed Mobility Training,Transfer Training,Gait Training, Therapeutic Exercise,Balance Retraining,Post Op Education, Discharge Planning,Hot or Cold Pack,Neuromuscular Re-ed Other Recommendations and Next Treatment precautions; gait without AD; Focus stairs Precautions Lumbar Precautions Log Roll,No Twisting,Limit Bending,Lifting Restriction of 10 lbs,Gait Belt above Incisional Area Discharge Recommendations PT Discharge Recommendations Home,Home with Assistance Transportation Needs at Discharge Private Vehicle
--- NOTE | 2022-01-22 08:45 | PM.DS.1 ---
History of Present Illness History of Present Illness Date Patient Seen: 01/22/22 Time Patient Seen: 08:45 Chief complaint: Back pain Narrative: Patient's back pain is mild. Denies fever or chills. No nausea or vomiting. Discharge Providers Provider Date of admission: 01/21/22 06:32 Discharge Date: 01/22/22 Primary care physician: Richard Horn MD Consults: 01/21/22 11:42 Consult to Occupational Therapy Evaluate & Treat Comment: Physician Instructions: Evaluate and treat Consult to Physical Therapy Evaluate & Treat Comment: Physician Instructions: Evaluate and Treat Discharge provider: Florencio Humphreys PA-C Summary Hospital Course Discharge Diagnosis: 1. L4-5 history of hemilaminectomy 2. L4-5 spinal stenosis with radiculopathy Hospital Course: ?1. L4-5 Postero-lateral and posterior interbody fusion 2. L4-5 interbody cage placement. 3. L4-5 decompressive laminectomy with bilateral facetecomies 4. L4-5 Posterior non-segmental instrumentation 5. [place] of bone marrow from iliac crest 6. Utilization of microsurgical technique and operating microscope Same procedure as scheduled: Yes Indications: Patient has been having chronic back pain and worsening lumbar radiculopathy. Patient failed multiple conservative management with worsening pain weakness and numbness in her lower extremity.? Patient has been having difficulty performing activity of daily living.? After discussing risks benefits of treatment options, patient elected proceed with surgery. Surgeon: Ramón Christine Photograph Developer: Aisha Chavira Click Yes if Unassisted: No Anesthesia Type: General Operative Notes Closure Type: primary Specimen(s): none sent Prosthetic devices, grafts, tissues, transplants, or devices: Globus revolve screws, Rise cage Estimated Blood Loss (mL): 20 Blood products transfused: none Patient admitted to the hospital for the above-mentioned procedure. Patient consented to the same. Patient underwent L4-L5 fusion January 21, 2022. Patient back in his room recovering well as in stable condition. Patient does have assistance at home. Patient will be discharged home today in stable condition. Exam Vital Signs (past 8 hours): - 01/22/22 04:30 Temperature 98.3 F Pulse Rate 72 Respiratory Rate 19 Blood Pressure 117/75 Pulse Oximetry 99 Oxygen Flow Rate 0 Oxygen Delivery Method Room Air Oxygen Flow Rate 0 PFSH Medical History Lumbar disc herniation with radiculopathy Social History household members: spouse Smoking Status: Former smoker alcohol intake: current Discharge Assessment & Plan Assessment and Plan Assessment: Patient progressing as expected status post L4-L5 fusion. Plan of Treatment: Limit bending, twisting, lifting Multimodal pain management Discharge home today in stable condition Discharge Plan Discharge Plan Patient Disposition: Home Discharge orders & Medications Prescriptions: New oxycodone 5 mg Tablet 5 mg PO Q3HR PRN (Reason: Pain, Severe (7-10)) Qty: 40 0RF hydroxyzine pamoate 25 mg Capsule 25 mg PO Q4HR PRN (Reason: Nausea And Vomiting) Qty: 10 0RF acetaminophen 325 mg Tablet 650 mg PO Q6HR PRN (Reason: Pain, Mild (1-3)) Qty: 60 0RF Discontinued aspirin [Adult Low Dose Aspirin] 81 mg tablet,delayed release (DR/EC) 81 mg PO DAILY Follow up/Referrals: Ramón Christine MD [Physician] - (2 weeks) Richard Horn MD [Primary Care Provider] - Diet/Activity/Treatments Diet: Diet as Tolerated Activity: Weight-bearing as tolerated, limit bending, twisting, lifting Skin/Wound/Dressing Care Report to your healthcare provider any signs of infection, such as:: chills, fever, increased pain, unusual drainage and unusual redness Dressing: Keep dressing clean and dry Visit Report/Discharge Packet Instructions: DI for Prescription Opioid Use, DI for Transforaminal Lumbar Interbody Fusion Stand Alone Forms: Surgery Discharge Discharge Data Primary Care Provider: Richard Horn
--- NOTE | 2022-01-22 09:19 | CM.DANOTE ---
DCP: Case received, EMR reviewed and met with patient. Introduced self and role. Was able to obtain information regarding patient's baseline activity level at home prior to his surgery. DCP assessment completed with information currently available. Patient is a 36 year old male who admitted early yesterday morning to the care of the orthopedic team. PCP: Dr. Horn. Payer: confirmed: Bianka Baker. Patient came to the hospital for a surgical procedure. Patient had L4-5 postero-lateral and posterior interbody fusion. Patient has history of spinal stenosis with radiculopathy. Met with patient in his room. He was up walking independently with no DME. 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 Patient indicated, this is his second back surgery. Patient has his spouse to assist him for any needs upon discharge. He has already worked with P.T. P: Patient is discharging home today with no needs. Mirian Mckee RN/Firearms Inspector Discharge Planning/Care Management CM Discharge Assessment Start: 01/22/22 09:17 Freq: Status: Active Protocol: Document 01/22/22 09:17 (Rec: 01/22/22 09:18 [id number]) Discharge Planning Assessment Assigned News Writer Mirian Mckee RN/Firearms Inspector Advance Directives? No History Provided By Patient,Medical Record Prior Living Arrangements House Household Members spouse Type of transporation used prior to Drives own vehicle admit Independent with ADL's Yes Is patient alert and oriented? Yes Caregiver for Another No Barriers to Discharge No Discharge Plan Home Transportation Arrangement Lorna will provide transportation Referrals Initiated None needed Whiteboard Updated in Patient Room with Yes name and ext. # of News Writer Review Status In Process Next Review Type Continued Stay Review
--- NOTE | 2022-01-22 09:40 | OT.IP.EVAL ---
Current Diagnoses Other intervertebral disc displacement, lumbar region (01/21/22) Other specified postprocedural states (01/21/22) Surgery Performed Operation Date: 01/21/22 07:45 Actual Procedures p L4-5 TLIF - Ramón Christine MD Past Medical History (Last Reviewed 01/22/22 @ 08:46 by Florencio Humphreys PA-C) Lumbar disc herniation with radiculopathy Occupational Therapy Inpatient Evaluation/Re-Eval M1 PT/OT-IP Prior Functional Status Start: 01/21/22 15:08 Freq: NEEDED Status: Active Protocol: Document 01/22/22 12:01 [facility] (Rec: 01/22/22 12:15 [facility] [id number]) Medical Review Prior Functional Status Medical History Reviewed Yes Communication WNL. Pt is an effective verbal communicator. Mobility and Gait Independent without AD. 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 Pt has had decreased LLE sensation (light touch, temperature, and pressure) since that time but no other deficits. Social History Household Members spouse Living Arrangements House Number of Floors (Floors) Two Floors Number of Stairs To Enter/Railing? 2 CORY with post on the right side. Pt climbs steps to bedroom level with L rail and R wall + 2 landings for turn + more steps with wall on left and 1/2 wall on right. 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 He is . He lives with his Lorna. M2 OT-IP Current Condition Start: 01/22/22 12:01 Freq: Status: Active Protocol: Document 01/22/22 12:01 [facility] (Rec: 01/22/22 12:15 [facility] [id number]) Occupational Therapy Current Condition Current Condition Evaluation Date 01/22/22 Treatment Diagnosis S/p L4-5 TLIF Diagnosis Onset Date 01/21/22 Post Operative Precautions Lumbar Precautions Log Roll,No Twisting,Limit Bending,Lifting Restriction of 10 lbs,Gait Belt above Incisional Area M3 OT- IP Subjective and Pain Start: 01/22/22 12:01 Freq: Status: Active Protocol: Document 01/22/22 12:01 [facility] (Rec: 01/22/22 12:15 [facility] [id number]) OT- Subjective Occupational Therapy Visit Type Type Initial Evaluation Visit Start Time 09:27 Visit Stop Time 09:40 Total Visit Minutes 13 Occupational Therapy Visit Comments Patient Comments Pt agreed to get dressed and looking to go home. Patient/Caregiver Goals TO go home. OT Pain Assessment Pain When Pain Assessed At Rest Pain Present Pain Present Denied Pain M4 OT- IP ADL's Start: 01/22/22 12:01 Freq: Status: Active Protocol: Document 01/22/22 12:01 [facility] (Rec: 01/22/22 12:15 [facility] [id number]) OT ULP-[id number]-Kqpqnzt General Evaluation Self-Feeding Ability Independent OT ADL-Grooming General Evaluation Grooming Ability Independent OT ADL-Oral Care General Eval Oral Care Ability Independent Comments Oral Care Comments Initial vc to spit into a cup to best follow his back precautions. OT ADL-Dressing General Eval Lower Body Dressing Ability Maximum Assistance Areas Needing Assistance Socks,Shoes Comments OT Dressing Comments Able to show to and practice plant assigner and sock aid for LB dressing needs. OT ADL-Toileting Comments OT Toileting Comments Pt able to reach back appropriately to wipe and states to get wet ones. OT ADL-Bathing Comments OT Bathing Comments Pt states to shower at home. M5 OT- IP IADL's Start: 01/22/22 12:01 Freq: Status: Active Protocol: Document 01/22/22 12:01 [facility] (Rec: 01/22/22 12:15 [facility] [id number]) OT-Instrumental Activities of Daily Living Deficits IADL Deficits Identified Deficits Home Safety Awareness Awareness of Need for Assistance at Home Good Awareness Ability to Problem Solve Emergency Able to Problem Solve Situations Medication Management Medication Management No Deficits Identified Money Management Money Management No Deficits Identified Meal Preparation Meal Preparation Caregiver Provides Assist Powderer Powderer Caregiver Provides Assist M6 OT- IP Functional Cognition Start: 01/22/22 12:01 Freq: Status: Active Protocol: Document 01/22/22 12:01 [facility] (Rec: 01/22/22 12:15 [facility] [id number]) Cognitive Factors Limiting Selfcare Function Cognitive Ability Level of Alertness Alert Patient Orientation Name,Age,Birthday,Month,Date, Year,Day of Week,Place, Situation Attention Span Ability Capable of Focused Attention, Capable of Sustained Attention Ability to Follow Commands Able to Follow Multi-Step Commands Cognitive Comments Cognitive Assessment Comments Pt is intact with no deficits and able to follow his back precautions with good understanding and safety. OT- Vision and Hearing OT- Hearing Assessment OT- Hearing Assessment WFL OT- Vision Assessment Visual Attentiveness WFL Occular Pursuits WFL M7 OT- IP Mobility and Balance Start: 01/22/22 12:01 Freq: Status: Active Protocol: Document 01/22/22 12:01 [facility] (Rec: 01/22/22 12:15 [facility] [id number]) OT-Transfer Assessment Sit to and From Stand Sit to and from Stand Independent Transfers Transfer Ability Independent Technique Transfer Destination Chair OT- Balance Assessment Sitting Balance and Reactions Static Sitting Balance Ability Normal Dynamic Sitting Balance Ability Good Standing Balance and Reactions Static Standing Balance Ability Good Dynamic Standing Balance Ability Fair Comments Other Balance Tests/Deviations/Treatment Once cleared by his surgeon, : pt would benefit from Outpt PT to work on core strengthening as pt tends to lean back from his lower back and would help to build up his core for better posture. M8 OT- IP Objective Assessments Start: 01/22/22 12:01 Freq: Status: Active Protocol: Document 01/22/22 12:01 [facility] (Rec: 01/22/22 12:15 [facility] [id number]) OT-Muscle Tone Assessment Muscle Tone WNL Yes M9 OT- IP Assessment and Plan Start: 01/22/22 12:01 Freq: Status: Active Protocol: Document 01/22/22 12:01 [facility] (Rec: 01/22/22 12:15 [facility] [id number]) OT Summary Assessment and Plan Potential Rehabilitation Potential Excellent Analytic Complexity at Evaluation Low Summary OT Impairments Strength,Balance,Functional Mobility,Dressing,Toileting, Bathing Progress Towards Goals Progressing Toward Goals Assessment Summary Pt low complexity and main barriers are needing assist for LB dressing needs- pt looking into getting a plant assigner and sock aid to assist and his to help him initially . Pt was issued a long handled shoe horn. Encourage to ask his surgeon for PT when appropriate to work on his core strength to help with his posture and pain. Pt to go home with his when medically stable. Goals Dressing Goal Independent Toileting Goal Independent Bathing Goal Independent Days to Meet Goals 3 Frequency of Treatment Frequency Of Treatment Once a Day Treatment Plan OT Treatment Plan ADL Training,Functional Mobility,Patient/Family Education,Discharge Planning Discharge Recommendations OT Discharge Recommendations Home with Assistance Home Equipment Needs sock aid, plant assigner, shower chair Transportation Needs at Discharge Private Vehicle
--- NOTE | 2022-01-22 11:52 | PC.NURSE ---
Discharge note: Patient discharged home per MD order and cleared by PT/OT. Ambulating in room independently, dressed self. Discharge instructions given to both patient and spouse. Discussed importance of F/U with Ortho on 02/05, mobility precautions, signs of worsening sx, and dressing care. Both verbalized understanding of discharge instructions. Home via private vehicle accompanied by spouse.
== END 2022-01-22 12:17 | disposition home or self-care (01) | DRG 455 ==
PROVIDERS: Admitting Provider Orthopaedic Surgery Orthopaedic Surgery of the Spine; PCP Student in an Organized Health Care Education/Training Program; Referring Provider Orthopaedic Surgery Orthopaedic Surgery of the Spine; Visit Provider Orthopaedic Surgery Orthopaedic Surgery of the Spine
PROC: 0SG00AJ Fusion of Lumbar Vertebral Joint with Interbody Fusion Device, Posterior Approach, Anterior Column, Open Approach (ICD-10-PCS; principal; 2022-01-21 07:45)
DX: M48.061 Spinal stenosis, lumbar region without neurogenic claudication (principal); M51.16 Intervertebral disc disorders with radiculopathy, lumbar region; F17.200 Nicotine dependence, unspecified, uncomplicated; Z20.822 Contact with and (suspected) exposure to COVID-19
CPT/HCPCS: 72100; 76000; 82962; 97116; 97162; 97165; 97530; C9290; J0171; J0690; J1170; J2250; J3010